=== PATIENT | male | born 1975 | race Caucasian/White ===

== ENCOUNTER 2016-08-29 02:53 | Inpatient (IN) ==
[2016-08-29] MEDS ORDERED: Ondansetron 4 MG/2 ML VIAL IVP PRN (04:57)
[2016-08-29] MEDS ORDERED: Naloxone 0.4 MG/ML INJ IVP PRN (04:57)
[2016-08-29] MEDS ORDERED: D5% in 0.9% NACL 1,000 ML IVC SCH (05:00)
--- NOTE | 2016-08-29 05:12 | Internal Med History&Physical ---
Date of Encounter: 08/29/16 Time of Encounter: 05:02 Assessment and Plan (1) Failure to thrive in adult Current visit: Yes Status: Acute Secondary to active malignancy Recurrent hypoglycemic episodes secondary to significantly decreased PO intake continue D5W NS at 100cc/hr regular diet nutrition consultation requested accucheck q1h palliative care consultation requested to establish goals of care (2) Hypoglycemia Current visit: No Status: Acute secondary to decreased PO intake D5W NS @ 100cc/hr accucheck q1h will closely monitor (3) Thrombocytopenia Current visit: No Status: Chronic likely secondary to underlying malignancy no acute bleeding reported at this time will closely monitor and transfuse as needed (4) Metastatic melanoma Current visit: No Status: Chronic (5) Goals of care, counseling/discussion Current visit: Yes Status: Acute Palliative care consultation requested (6) Hyponatremia Current visit: Yes Status: Chronic Chronic hyponatremia likely secondary to malignancy continue IV fluids and closely monitor (7) DVT prophylaxis Current visit: Yes Status: Acute SCD Internal Medicine - H&P: HPI Chief complaint: transfer from [facility] for persistent hypoglycemia Admitted From: Intrahospital Transfer Plans for Post Hospital Care: Home History of present illness: Mr. 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 Patient is currently AAO x 0 and somnolent. He is only responding to tactile stimuli due to which information is obtained from sister ( Serenity Malcolm [phone]) and medical records. As per sister, patient has been living with her for the last week and has had no PO intake. He has been refusing to eat and been extremely week. She states he was noted to be confused yesterday and she had called EMS at that time however patient was noted to have vitals within normal range and he was alert and oriented due to which EMS did not take him to the hospital for further evaluation. Overnight, patient's mental status became confused again and he became unresponsive, due to which the sister called EMS again and patient was found to be severely hypoglycemic. Sister reports that the patient has been having recurrent episodes of severe hypoglycemia and he is not eating, not taking his medications, and unable to take care of himself. At this time patient is resting in bed and appears to be in no distress. Patient does not have a living will, and as per sister (POA), patient wishes to be full code as he wants to be there for his daughter. Past Med Surg Social Fam HX - Past Medical History Medical history: cancer - Past Surgical History Surgical History: non-contributory - Social History Smoking Status: Unknown if ever smoked Smokeless Tobacco Status: No Alcohol use: unknown Drug use: marijuana Internal Medicine - H&P: Meds Dexamethasone [Decadron] 4 mg PO BID 08/29/16 [History] Furosemide [Lasix] 20 mg PO DAILY 08/29/16 [History] LevETIRAcetam [Roweepra] 500 mg PO BID 08/29/16 [History] Oxycodone HCl [Roxicodone 30 MG Immed Release] 30 mg PO Q6HR 08/29/16 [History] Allergies Penicillins Allergy (Verified 08/05/16 08:19) Difficulty Breathing ROS unobtainable: due to mental status All Systems PM: A 10-system review of systems was performed and is negative for pertinent findings except as documented above in the HPI. - Constitutional General appearance: Present: cachectic, A&O X 0, no acute distress, loss of weight. Absent: answers questions appropriately - Head Head exam: Present: atraumatic, normocephalic - Eye Eye exam: Present: PERRL, conjuntiva pink, sclera anicteric - Respiratory Respiratory exam: Present: CTAB. Absent: accessory muscle use, rales, rhonchi, wheezes - Cardiovascular Cardiovascular exam: Present: +S1, +S2, tachycardia. Absent: diastolic murmur, systolic murmur - GI/Abdominal GI/Abdominal exam: Present: normal bowel sounds, soft, no peritoneal signs. Absent: distended, tenderness - Extremities Exam Extremities exam: Present: pedal edema, warm, radial pulses palpable and symetrical. Absent: calf tenderness
[2016-08-29] MEDS: *HR* Dextrose 50 % in Water (Syg) 50 ML SYRINGE IVP PRN ×7 (07:58→22:36)
[2016-08-29] MEDS ORDERED: *HR* Dextrose 50 % in Water (Syg) 50 ML SYRINGE IVP ONE (09:33)
--- NOTE | 2016-08-29 12:09 | Palliative - Consult Note ---
Date of Encounter: 08/29/16 Time of Encounter: 12:00 - Assessment and Plan (1) Cancer associated pain Current Visit: Yes Status: Acute Assessment and plan: Will need to observe closely. Sister states she thinks he threw his Oxycontin ( 60mg every12 hr) away and wasnt taking it. He does complain of some right hip pain at this time, but he is still very drowsy with altered mental status. Will try and access [facility] report. Will have low dose Hydromorphone available if needed. (2) Goals of care, counseling/discussion Current Visit: Yes Status: Acute Assessment and plan: Patient unable to discuss. Spoke with sister Serenity via telephone. States that pt and family was living with her, but they just moved into their own place. States he has significant other Daisy August of 13 yrs and has 11y/o daughter. States that both his parents have , and he has 2 other brothers that he does not have a very good relationship with. States that he has not completed a power of disability attorney or any other advanced directives as of this time, and although he refused to do so at [facility], had recently told his girlfriend he needed to complete. She states he expressed desire to be full code last night. She will call me tomorrow when gets to hospital for goals of care discussion. Hopefully, his mental status will be improved. Will f/u Tuesday. (3) Metastatic melanoma Current Visit: No Status: Chronic (4) Hypoglycemia Current Visit: No Status: Acute Palliative-CN HPI - Data of Consult Consult date: 08/29/16 Requesting Physician: Ciarra Garzon Primary Care Provider: PCP NO - Consult Narrative History of present illness: Mr. Snadoval is a 41 year old male with a history of metastatic melanoma, with liver , brain, and bone involvement. He was seen yesterday in ER for hypoglycemia, and refused admission. Family returned him to [place] last night with lethargy. Information provided by chart review and sisterSerenity via telephone. Patient recently relocated to the area and was living with sister, but now he and his girlfriend have moved into their own place. Original diagnosis was in fall 2015 , and had excision of tumor and lympph nodes - developed wound dehiscence, requiring wound vac. Any cancer treatment was put on hold r/t wound complications. His care has been tranferred to the [facility]. He had recent Cyberknife to brain lesion at [facility]. Oncology notes reviewed. Family stated that he has not eaten in several days. Found again to be hypoglycemic and transferred to [facility] for further treatment. Nurse is at bedside and states pt has received several doses of Glucose - blood sugar currently in 40's. Currently, He is restless and confused. Did however recognize he was at hospital, thought he was at [place]. No family present. CC: Ciarra Garzon Past Med Surg Social Fam HX - Past Medical History Medical history: cancer - Past Surgical History Surgical History: non-contributory - Social History Smoking Status: Unknown if ever smoked Smokeless Tobacco Status: No Alcohol use: unknown Drug use: marijuana Medications and Allergies Dexamethasone [Decadron] 4 mg PO BID 08/29/16 [History] Furosemide [Lasix] 20 mg PO DAILY 08/29/16 [History] LevETIRAcetam [Roweepra] 500 mg PO BID 08/29/16 [History] Oxycodone HCl [Roxicodone 30 MG Immed Release] 30 mg PO Q6HR 08/29/16 [History] Allergies Penicillins Allergy (Verified 08/05/16 08:19) Difficulty Breathing ROS unobtainable: due to mental status Palliative Care-Exam - Constitutional Vitals: Temp Pulse Resp BP Pulse Ox 98.5 F 135 24 116/63 95 08/29/16 07:36 08/29/16 11:06 08/29/16 11:06 08/29/16 11:06 08/29/16 11:06 General appearance: Present: no acute distress - Head Head Exam: Present: normal inspection, normocephalic - Eye Eye exam: Present: normal appearance, PERRL - ENT ENT exam: Present: mucous membranes dry - Respiratory Respiratory exam: Present: decreased breath sounds, CTAB - Cardiovascular Cardiovascular exam: Present: +S1, +S2, tachycardia - GI/Abdominal Exam GI/Abdominal exam: Present: diminished bowel sounds, distended, soft - Extremities Exam Extremities exam: Present: normal capillary refill, normal inspection - Neurological Exam Neurological exam: Present: alert Additional comments: Lethargic - restless. Oriented to name only at present. - Skin Skin exam: Present: dry, pallor, warm Consult Discharge Plan - Plan Referrals: NO,PCP [Primary Care Provider] - Palliative Quality Palliative Quality: Screen for Code Status: No (pt confused), Screen for Goals of Care: No, Screen for Pain: Yes, If Pain Regimen Started, Initiate Bowel Regimen: No, Screen for Nausea/Vomitting: No Code Status: 08/29/16 04:57 Resuscitation Status: Active [RES] Routine Comment: Resuscitation Status: Full Code
--- NOTE | 2016-08-29 13:00 | Event Note ---
Date of Encounter: 08/29/16 Time of Encounter: 12:50 patient admitted for severe hpoglycemia, hyponatremia and thrombocytopenia in the setting of metastatic melanoma stage 4. patient seen at the bedside, awake but drowsy,, confused and does not answer much to questions no obvious bleeding from any body sites, noted that he has persistent hypoglycemia despite of being on D5 NS drip will change the drip to D10NS for now, check fsg q1hr, D50 IV push prn and glucagon 1 mg IV prn also discussed with Dr. Dietrich about the patient,will need platelet transfusion if it drops below 20. there is a concern for possible hepatic mets given elevated alk phos and persistent hyppoglycemia will follow oncology recommendation, palliative on board. will monitro chem 7 q4h as he also has hyponatremia, repeat cbc in the evening. patinet is high risk given severe metabolic abnormalities with thrombocytopenia in the setting of metastatic melanoma.
[2016-08-29] MEDS: WATER IVC SCH (13:23)
[2016-08-29] MEDS: DEXTROSE IVC SCH (13:23)
[2016-08-29] MEDS: NACL IVC SCH (13:23)
[2016-08-29] MEDS: D5 IVC SCH (13:23)
--- NOTE | 2016-08-29 16:20 | Oncology Inp Consult Note ---
Date of Encounter: 08/29/16 Time of Encounter: 16:20 - Data of Consult Patient: known to practice within the last 3 years Consult date: 08/29/16 Requesting Physician: Ciarra Garzon Primary Care Provider: PCP NO - Consult Narrative Reason for consult: Metastatic melanoma History of present illness: Mr. Sandoval is a 41 year old male patient of the cancer center was established with Dr. Mejia for ongoing management of widely metastatic melanoma. He is also seen Dr. Adrian in the past regarding symptomatic metastasis to bone and brain. He was last seen in the office 08/11/16. I have summarized patient's heme/onc background below based on [default value]'s most recent office report. 41-year-old male with smoking hx, bipolar disorder, was evaluated in January 2016 with fungating the lesion of melanoma which was suspected to have deeper extension in the left pubic area with inguinal adenopathy. Imaging at that time showed a 3.7 cm cutaneous mass in the left suprapubic region as well as bilateral groin metastatic lymphadenopathy. Left groin lymph node measured 2.9 x 2.3 cm right groin lymph nodes measured 2.8 x 1.8 cm in size 3.7 x 2.3 cm cutaneous mass in the left suprapubic region. She was also noted to have 5 mm intermediate solid nodule in the right middle lobe, multifocal Airspace opacities in the right lower lobe and an enlarged right hilar lymph node which was thought to be reactive. He underwent biopsy,CT scan showing no evidence clearly suggestive of metastatic disease, excision and evaluation for adjuvant treatment. He was staged T4b N2b to be malignant melanoma, IIIc disease. He had a dehiscence macarena groin area with wound VAC. Last f/u per records in 05/14 he was recommended reimaging studies. He was evaluated for trials but basically was left in the dark and does not have a clear understanding why he was not imaged/treated adjuvantly. Patient was further worked up with the PET imaging and MRI scan MRI brain from 07/31/2016 showed 3 enhancing masses consistent with intracranial metastatic disease largest in the left posterior frontal lobe measuring 1.2 cm in diameter with vasogenic edema. Plan 2016 PET imaging showed extensive multifocal hypermetabolic metastatic disease in the brain, intramedullary hypermetabolic activity, E, nonspecific lucent foci in the skeleton, bilateral subcentimeter pulmonary nodules, mild gastritis pericardial effusion diffuse abdominal wall edema to lower extremity. He had CyberKnife therapy to 3 brain lesions (left frontal lobe, left medial parietal lobe and right parietal lobe on 08/13/16 and appears to have tolerated treatment well. For his widely metastatic melanoma, he started combination immunotherapy with Ipilimumab + Nivolumab on 08/17/16. Patient is currently hospitalized for significant clinical decline over the last week or so. He has worsening anemia. Profound thrombocytopenia (platelet count 21,000 versus 360,000 a month ago). He has diffuse, generalized pain, mental status changes with marked lethargic, recurrent hypoglycemic episodes. Overall, he is not thriving well at home. He presented yesterday to the emergency room + out AGAINST MEDICAL ADVICE. He represented today due to worsening in his overall condition. He is being managed supportively by the hospital team including glucose infusion for hyperglycemia, volume resuscitation etc. He is also hyponatremic Oncology is consulted re: patient's underlying metastatic melanoma. Patient seen and examined at bedside with sister and girlfriend present. Chest reviewed for details of ongoing care by hospital team which is much appreciated. Dr. Garzon was kind enough to discuss patient's case with me regarding reason for consultation. He is markedly lethargic at time of evaluation. He reports generalized dysphoria. He has ongoing supportive measures including pain medication and IV glucose. Hypoglycemia. His been evaluated by palliative care regarding symptom management and to address goals of care. I reviewed the consultation report and appreciate the input. Rest of past medical, surgical, family, social history detailed below and verified with patient today. Review of systems: 12 point review of systems performed with patient and positive findings noted in history of present illness. All other systems are negative: Physical exam: Vital Signs Temp 98.5 F 08/29/16 16:10 Pulse 129 08/29/16 16:10 Resp 22 08/29/16 16:10 BP 127/89 08/29/16 16:10 Pulse Ox 96 08/29/16 16:10 GENERAL: Alert and oriented, frail, lethargic, cachectic, acutely ill appearing. Mental Status: Affect appropriate for circumstances HEENT: Sclerae anicteric. No mucositis or thrush. No other oral or pharyngeal lesions or erythema. Skin: No rashes or petechiae. No evidence of skin malignancy Lymph nodes: No cervical, supraclavicular, axillary, or inguinal adenopathy. Lungs: Clear to auscultation bilaterally. Clear to percussion bilaterally. Cardiovascular: Regular rate and rhythm. No gallops, murmurs, or rubs. Abdomen: Soft, nontender; No organomegaly or masses palpable. Extremities: No edema. No calf swelling or tenderness. No joint deformity. Neurologic: Lethargic. Oriented 3. Wants to go home. no focal weakness or sensory abnormalities. Results: Laboratory Last Values Sodium 125 mEq/L (136-145) L 08/29/16 16:02 Potassium 5.9 mEq/L (3.5-4.5) H D 08/29/16 16:02 Chloride 91 mEq/L (98-109) L 08/29/16 16:02 Carbon Dioxide 15 mEq/L (19-29) L 08/29/16 16:02 BUN 35 mg/dL (8-26) H 08/29/16 16:02 Creatinine 0.67 mg/dL (0.72-1.25) L 08/29/16 16:02 Est GFR ( Amer) > 60 (> 60) 08/29/16 16:02 Est GFR (Non-Af Amer) > 60 (> 60) 08/29/16 16:02 BUN/Creatinine Ratio 52 (6-26) H 08/29/16 16:02 Glucose 50 mg/dL (70-99) L 08/29/16 16:02 Calculated Osmolality 265 (280-300) L 08/29/16 16:02 Calcium 8.8 mg/dL (8.6-10.8) 08/29/16 16:02 Radiographic studies: I personally reviewed and interpreted patient's most recent imaging studies dated 08/29/16. I discussed the findings with the patient today. Head CT 08/29/16 showed 1.1 cm rounded mass with surrounding edema in the high left frontal lobe suspicious for metastatic disease. No acute intracranial hemorrhage seen. Brain MRI recommended. From reviewing his records, this is likely secondary that was treated with CyberKnife on 08/13/16. This would be the expected radiographic appearance of his treated brain metastasis. Impression/recommendations: Metastatic melanoma: He has widely disseminated disease involving brain, bone, liver multiple abdominal visceral organs. He recently started combination immunotherapy (Nivolumab plus Ipilimumab) 2 weeks ago. It is certainly too early to see an effect of his immunotherapy which may be slow to begin but typically durable if he responds. From reviewing his records, Dr. Mejia is still in discussion with [facility] regarding the left testing. If he has a BRAF positive melanoma, he'll be an appropriate candidate for a BRAF targeted therapy which is typically associated with rapid and excellent response including intracranially. Given his young age, this will certainly be worth of visiting with him over the course of the coming days. Regarding his current generalized multisystem symptoms and failure to thrive at home, timing of onset is certainly compatible with immunotherapy side effects which can present with multiorgan endocrinopathies and a typically amenable to steroid therapy. Based on above, I will evaluate for adrenal, thyroid dysfunction. Refractory hypoglycemia and general malaise may indicate adrenal insufficiency even though blood pressure is normal. Abdominal pain may indicate autoimmune pancreatitis and we'll checked pancreatic enzymes. Cytopenias may be on an autoimmune basis. He needs complete anemia workup. Elevated LDH is likely related to patient's underlying melanoma. I'm not sure if his mental status changes is related to vasogenic edema from his left frontal brain lesion. I do not believe this is a new metastasis since this area was recently treated with CyberKnife in [place]. I think is reasonable to empirically start him on on dexamethasone 4 mg by mouth or IV depending on oral tolerability 3 times a day. This should address concern about vasogenic edema and would also help with any immunotherapy side effects while workup is ongoing. Regarding his anemia and profound thrombocytopenia: He is not having any active bleeding and we will recommend CBC monitoring. Transfuse platelets to maintain counts greater than 20,000. Recommend complete anemia workup including iron panel, ferritin, B12, folate, direct Sia, haptoglobin, SPEP. For his cancer associated pain: Given concern about altered mental status, he may be an appropriate candidate for demand only [employer]. Appreciate input from palliative care and will defer to them regarding management of patient's pain. We'll follow the patient along side you during this hospitalization but please do not hesitate to call regarding interval hematologic questions as they arise. Thank you for your excellent ongoing care for allowing us to see him while in- house. This report was created using voice recognition software and may contain errors. It was signed but not edited to expedite communication. Corrections will be made in a separate addendum as needed. Past Med Surg Social Fam HX - Past Medical History Medical history: cancer - Past Surgical History Surgical History: non-contributory - Social History Smoking Status: Unknown if ever smoked Smokeless Tobacco Status: No Alcohol use: unknown Drug use: marijuana Medications and Allergies Dexamethasone [Decadron] 4 mg PO BID 08/29/16 [History] Furosemide [Lasix] 20 mg PO DAILY 08/29/16 [History] LevETIRAcetam [Roweepra] 500 mg PO BID 08/29/16 [History] Oxycodone HCl [Roxicodone 30 MG Immed Release] 30 mg PO Q6HR 08/29/16 [History] Allergies Penicillins Allergy (Verified 08/05/16 08:19) Difficulty Breathing Oncology - Exam - Constitutional Vitals: Temp Pulse Resp BP Pulse Ox 98.5 F 129 22 127/89 96 08/29/16 16:10 08/29/16 16:10 08/29/16 16:10 08/29/16 16:10 08/29/16 16:10 Consult Discharge Plan - Plan Referrals: NO,PCP [Primary Care Provider] -
[2016-08-29 16:25] LABS: BUN/Creatinine Ratio 52 (6-26); Blood Urea Nitrogen 35 mg/dL (8-26); Calcium 8.8 mg/dL (8.6-10.8); Carbon Dioxide 15 mEq/L (19-29); Chloride 91 mEq/L (98-109); Glucose 50 mg/dL (70-99); Osmolality,Calculated 265 (280-300); Sodium 125 mEq/L (136-145); eGFR For African Americans > 60 (> 60); eGFR For Non-African Americans > 60 (> 60)
[2016-08-29 16:27] LABS: Potassium 5.9 mEq/L (3.5-4.5)
[2016-08-29] MEDS ORDERED: *HR* OxyCODONE Immed Rel 15 MG TABLET PO PRN (17:21)
[2016-08-29] MEDS: *HR* OxyCODONE ER (12 HR) 20 MG TABLET PO SCH (17:32)
[2016-08-29] MEDS: Dexamethasone 4 MG/ML VIAL IVP SCH ×2 (17:54→19:47)
[2016-08-29 20:25] LABS: Nucleated Red Blood Cells 0.6 /100 WBC (0)
[2016-08-29 20:27] LABS: Hematocrit 24.5 % (37.5-50.1); Hemoglobin 7.8 g/dL (12.9-16.9); Immature Platelets 14.9 % (1.1-6.1); Lymphocytes # 0.7 K/mcL (0.6-4.6); Mean Corpuscular HGB Conc 31.8 g/dL (31.6-35.5); Mean Corpuscular Hemoglobin 23.5 pg (28.0-33.3); Mean Corpuscular Volume 73.8 fL (83.0-100.0); Red Blood Count 3.32 M/mcL (4.19-5.50); Red Cell Distribution Width 19.9 % (11.5-14.5)
[2016-08-29 20:38] LABS: Amylase 23 Units/L (25-125); BUN/Creatinine Ratio 56 (6-26); Blood Urea Nitrogen 31 mg/dL (8-26); Carbon Dioxide 17 mEq/L (19-29); Chloride 91 mEq/L (98-109); Glucose 84 mg/dL (70-99); Lipase < 10 Units/L (8-78); Osmolality,Calculated 268 (280-300); Potassium 4.4 mEq/L (3.5-4.5); Sodium 126 mEq/L (136-145); eGFR For African Americans > 60 (> 60); eGFR For Non-African Americans > 60 (> 60)
[2016-08-29 20:45] LABS: Platelet Count 20 K/mcL (140-400)
[2016-08-29 20:48] LABS: Large Platelets Present (Not Present); Monocytes # 0.9 K/mcL (0.0-1.3); Neutrophils # 9.8 K/mcL (1.6-8.9); Platelet Estimate Marked Decrease (Normal)
[2016-08-29 20:49] LABS: Anisocytosis 1+ (Not Present); Polychromasia 1+ (Not Present); Schistocytes 1+ (Not Present); Target Cells 1+ (Not Present)
[2016-08-30] MEDS: NACL IVC SCH ×3 (00:43→23:19)
[2016-08-30] MEDS: WATER IVC SCH ×3 (00:43→23:19)
[2016-08-30] MEDS: DEXTROSE IVC SCH ×3 (00:43→23:19)
[2016-08-30] MEDS: D5 IVC SCH ×3 (00:43→23:19)
[2016-08-30 00:56] LABS: BUN/Creatinine Ratio 56 (6-26); Blood Urea Nitrogen 31 mg/dL (8-26); Calcium 8.9 mg/dL (8.6-10.8); Carbon Dioxide 14 mEq/L (19-29); Chloride 92 mEq/L (98-109); Glucose 58 mg/dL (70-99); Osmolality,Calculated 264 (280-300); Potassium 5.2 mEq/L (3.5-4.5); Sodium 125 mEq/L (136-145); eGFR For African Americans > 60 (> 60); eGFR For Non-African Americans > 60 (> 60)
[2016-08-30] MEDS: *HR* Dextrose 50 % in Water (Syg) 50 ML SYRINGE IVP PRN ×5 (02:02→22:46)
[2016-08-30 05:14] LABS: BUN/Creatinine Ratio 61 (6-26); Blood Urea Nitrogen 33 mg/dL (8-26); Carbon Dioxide 17 mEq/L (19-29); Chloride 92 mEq/L (98-109); Glucose 61 mg/dL (70-99); Osmolality,Calculated 267 (280-300); Sodium 126 mEq/L (136-145); eGFR For African Americans > 60 (> 60); eGFR For Non-African Americans > 60 (> 60)
[2016-08-30] MEDS: *HR* OxyCODONE ER (12 HR) 20 MG TABLET PO SCH (06:14)
[2016-08-30 08:04] LABS: Hemoglobin 8.3 g/dL (12.9-16.9); Nucleated Red Blood Cells 0.5 /100 WBC (0)
[2016-08-30 08:06] LABS: Hematocrit 25.7 % (37.5-50.1); Immature Platelets 17.6 % (1.1-6.1); Mean Corpuscular HGB Conc 32.3 g/dL (31.6-35.5); Mean Corpuscular Hemoglobin 23.4 pg (28.0-33.3); Mean Corpuscular Volume 72.6 fL (83.0-100.0); Red Blood Count 3.54 M/mcL (4.19-5.50); Red Cell Distribution Width 20.1 % (11.5-14.5)
[2016-08-30 08:10] LABS: Platelet Count 18 K/mcL (140-400)
[2016-08-30 08:34] LABS: Lymphocytes # 0.8 K/mcL (0.6-4.6); Monocytes # 0.5 K/mcL (0.0-1.3); Neutrophils # 11.4 K/mcL (1.6-8.9)
[2016-08-30 08:38] LABS: Anisocytosis 1+ (Not Present); Platelet Estimate Marked Decrease (Normal); Poikilocytosis 2+ (Not Present); Polychromasia 1+ (Not Present); Schistocytes 1+ (Not Present); Target Cells 1+ (Not Present); Tear Drop Cells 1+ (Not Present)
[2016-08-30] MEDS: Dexamethasone 4 MG/ML VIAL IVP SCH ×3 (08:43→21:04)
[2016-08-30 08:52] LABS: BUN/Creatinine Ratio 60 (6-26); Blood Urea Nitrogen 33 mg/dL (8-26); Calcium 9.1 mg/dL (8.6-10.8); Carbon Dioxide 17 mEq/L (19-29); Chloride 93 mEq/L (98-109); Glucose 63 mg/dL (70-99); Osmolality,Calculated 267 (280-300); Potassium 4.9 mEq/L (3.5-4.5); Sodium 126 mEq/L (136-145); eGFR For African Americans > 60 (> 60); eGFR For Non-African Americans > 60 (> 60)
[2016-08-30] MEDS ORDERED: *HR* OxyCODONE Immed Rel 15 MG TABLET PO PRN (09:26)
--- NOTE | 2016-08-30 09:29 | Palliative Progress Note ---
Date of Encounter: 08/30/16 Time of Encounter: 09:00 - Assessment and plan (1) Hypoglycemia Current Visit: No Status: Acute Assessment and plan: Clinton to be secondary to immune therapy, patient is on a dextrose drip. May very well be contributing his somnolence. Although I cannot rule out that this is also opioid related. Need to watch her closely plan per hospitalist and oncology teams. Of note the cortisol is slightly elevated, TSH normal T4 is slightly low with a T3 is not evaluated at this time. Internal medicine is following as well as oncology. (2) Failure to thrive in adult Current Visit: Yes Status: Acute Assessment and plan: Nutrition is already following, will encourage by mouth intake. And supplements. The patient is a bit more awake I will discuss with him the need for Kylie and if he wishes for his immunotherapy to work. (3) Goals of care, counseling/discussion Current Visit: Yes Status: Acute Assessment and plan: The patient does not have a medical power of senior trial attorney, he has not done his advanced directives. Brittany which currently is his sister and his girlfriend of 13 years should be in this afternoon around 1300. I plan to speak with them. It appears the patient wishes to have aggressive therapy. He wishes to achieve this, he will need to work on his nutrition, also have a code discussion as feel that his prognosis would be Auch pot him if he were to have a cardiac arrest with the amount of disease burden that he has. I think the likelihood of any meaningful recovery would be extremely poor. He patient is far too somnolent at this time to have a proper discussion, I will have to defer to his family. (4) Cancer associated pain Current Visit: Yes Status: Acute Assessment and plan: The patient has been on extended release OxyContin 60 mg twice a day and 30 mg every 6 hours as confirmed by his oars report which appears to be appropriate. At this time the patient is extremely somnolent I do not know how much of this may be related to his blood sugars, however his blood sugars are over 70, and he is on a dextrose drip. Do not feel that a WORK ADJUSTMENT INSTRUCTOR is necessary at this point I believe it can be handled with oral medications. Will reevaluate if the patient seems to be having trouble with pain. the patient has been on long- lasting opioids for a while I am reluctant to completely stop them, however I will cut them in half. We will also make the break through medications lower dose but more frequent. Can calculate his oral morphine equivalents per day and adjust from there. Asked for the long-lasting morphine to only be given if he is not sedated, the when necessary's are every 3 hours and we will adjust from there. I Have not changed the Dilaudid IV I have discussed this with the hospitalist who agrees. (5) Metastatic melanoma Current Visit: No Status: Chronic Assessment and plan: On immune therapy from the cancer center. It appears the patient wishes to be centered for an continue on aggressive therapy. We will plan on this. And will discuss with family later on today. - Time Spent With Patient Total time spent is greater than 50% in coordination of care (as documented) at patient's floor/unit and/or counseling patient: - Subjective Interval history: pt very sedated this am cannot carry on a conversTION The patient drifts off to sleep even when I am asking him about his pain. He does not appear to be in any discomfort, no events overnight. - Constitutional Vitals: Abnormal lab results WBC 13.0 K/mcL (4.3-11.1) H 08/30/16 07:46 RBC 3.54 M/mcL (4.19-5.50) L 08/30/16 07:46 Hgb 8.3 g/dL (12.9-16.9) L 08/30/16 07:46 Hct 25.7 % (37.5-50.1) L 08/30/16 07:46 MCV 72.6 fL (83.0-100.0) L 08/30/16 07:46 MCH 23.4 pg (28.0-33.3) L 08/30/16 07:46 RDW 20.1 % (11.5-14.5) H 08/30/16 07:46 Plt Count 18 K/mcL (140-400) L* 08/30/16 07:46 Band Neutrophils % 20.0 % (0-4) H 08/30/16 07:46 Promyelocytes % 2.0 % (0) H 08/30/16 07:46 Neutrophils # 11.4 K/mcL (1.6-8.9) H 08/30/16 07:46 Nucleated RBCs/100 WBC 0.5 /100 WBC (0) H 08/30/16 07:46 Platelet Estimate Marked Decrease (Normal) L 08/30/16 07:46 Large Platelets Present (Not Present) A 08/29/16 20:17 Immature Plt Fraction 17.6 % (1.1-6.1) H 08/30/16 07:46 Polychromasia 1+ (Not Present) A 08/30/16 07:46 Poikilocytosis 2+ (Not Present) A 08/30/16 07:46 Anisocytosis 1+ (Not Present) A 08/30/16 07:46 Target Cells 1+ (Not Present) A 08/30/16 07:46 Tear Drop Cells 1+ (Not Present) A 08/30/16 07:46 Schistocytes 1+ (Not Present) A 08/30/16 07:46 Sodium 126 mEq/L (136-145) L 08/30/16 07:46 Potassium 4.9 mEq/L (3.5-4.5) H 08/30/16 07:46 Chloride 93 mEq/L (98-109) L 08/30/16 07:46 Carbon Dioxide 17 mEq/L (19-29) L 08/30/16 07:46 BUN 33 mg/dL (8-26) H 08/30/16 07:46 Creatinine 0.55 mg/dL (0.72-1.25) L 08/30/16 07:46 BUN/Creatinine Ratio 60 (6-26) H 08/30/16 07:46 Glucose 63 mg/dL (70-99) L 08/30/16 07:46 POC Glucose 50 (58-89) L 08/29/16 17:41 Calculated Osmolality 267 (280-300) L 08/30/16 07:46 Amylase 23 Units/L (25-125) L 08/29/16 20:17 Thyroxine (T4) 2.44 mcg/dL (4.87-11.72) L 08/29/16 20:17 General appearance: Present: no acute distress, thin - Head Head exam: Present: atraumatic, normal inspection - Eye Eye exam: Present: normal appearance - ENT ENT exam: Present: mucous membranes moist (White patches are noticed on the mouth and tongue) - Neck Neck exam: Present: normal inspection - Respiratory Respiratory exam: Present: CTAB - Cardiovascular Cardiovascular exam: Present: RRR - GI/Abdominal GI/Abdominal exam: Present: normal bowel sounds, soft. Absent: tenderness - Extremities Exam Extremities exam: Present: normal inspection. Absent: pedal edema, tenderness - Neurological Exam Neurological exam: Present: altered (Patient extremely somnolent and difficult to engage in conversation) - Psychiatric Psychiatric exam: Absent: agitated, anxious - Skin Skin exam: Present: dry, warm Palliative Quality Palliative Quality: Screen for Code Status: No (pt confused will discuss with family later today), Screen for Goals of Care: No (Stress with family later today), Screen for Pain: Yes, If Pain Regimen Started, Initiate Bowel Regimen: Yes (Restart regimen today), Screen for Nausea/Vomitting: Yes (None reported) Code Status: 08/29/16 04:57 Resuscitation Status: Active [RES] Routine Comment: Resuscitation Status: Full Code - Labs CBC & Chem 7: 08/30/16 07:46 08/30/16 07:46 Labs: Laboratory Results - last 24 hr 08/29/16 08/29/16 08/29/16 04:17 06:24 06:26 WBC RBC Hgb Hct MCV MCH MCHC RDW Plt Count MPV Seg Neutrophils % Band Neutrophils % Lymphocytes % Monocytes % Promyelocytes % Neutrophils # Lymphocytes # Monocytes # Nucleated RBCs/100 WBC Platelet Estimate Large Platelets Immature Plt Fraction Polychromasia Poikilocytosis Anisocytosis Target Cells Tear Drop Cells Schistocytes Sodium Potassium Chloride Carbon Dioxide BUN Creatinine Est GFR ( Amer) Est GFR (Non-Af Amer) BUN/Creatinine Ratio Glucose POC Glucose 59 47 L* 65 Calculated Osmolality Calcium Amylase Lipase TSH Thyroxine (T4) Random Cortisol 08/29/16 08/29/16 08/29/16 07:34 07:35 09:26 WBC RBC Hgb Hct MCV MCH MCHC RDW Plt Count MPV Seg Neutrophils % Band Neutrophils % Lymphocytes % Monocytes % Promyelocytes % Neutrophils # Lymphocytes # Monocytes # Nucleated RBCs/100 WBC Platelet Estimate Large Platelets Immature Plt Fraction Polychromasia Poikilocytosis Anisocytosis Target Cells Tear Drop Cells Schistocytes Sodium Potassium Chloride Carbon Dioxide BUN Creatinine Est GFR ( Amer) Est GFR (Non-Af Amer) BUN/Creatinine Ratio Glucose POC Glucose 28 L* 42 L* 31 L* Calculated Osmolality Calcium Amylase Lipase TSH Thyroxine (T4) Random Cortisol 08/29/16 08/29/16 08/29/16 09:27 10:00 10:54 WBC RBC Hgb Hct MCV MCH MCHC RDW Plt Count MPV Seg Neutrophils % Band Neutrophils % Lymphocytes % Monocytes % Promyelocytes % Neutrophils # Lymphocytes # Monocytes # Nucleated RBCs/100 WBC Platelet Estimate Large Platelets Immature Plt Fraction Polychromasia Poikilocytosis Anisocytosis Target Cells Tear Drop Cells Schistocytes Sodium Potassium Chloride Carbon Dioxide BUN Creatinine Est GFR ( Amer) Est GFR (Non-Af Amer) BUN/Creatinine Ratio Glucose POC Glucose 30 L* 62 45 L* Calculated Osmolality Calcium Amylase Lipase TSH Thyroxine (T4) Random Cortisol 08/29/16 08/29/16 08/29/16 10:55 11:31 12:24 WBC RBC Hgb Hct MCV MCH MCHC RDW Plt Count MPV Seg Neutrophils % Band Neutrophils % Lymphocytes % Monocytes % Promyelocytes % Neutrophils # Lymphocytes # Monocytes # Nucleated RBCs/100 WBC Platelet Estimate Large Platelets Immature Plt Fraction Polychromasia Poikilocytosis Anisocytosis Target Cells Tear Drop Cells Schistocytes Sodium Potassium Chloride Carbon Dioxide BUN Creatinine Est GFR ( Amer) Est GFR (Non-Af Amer) BUN/Creatinine Ratio Glucose POC Glucose 42 L* 105 H 54 L Calculated Osmolality Calcium Amylase Lipase TSH Thyroxine (T4) Random Cortisol 08/29/16 08/29/16 08/29/16 13:11 14:04 15:01 WBC RBC Hgb Hct MCV MCH MCHC RDW Plt Count MPV Seg Neutrophils % Band Neutrophils % Lymphocytes % Monocytes % Promyelocytes % Neutrophils # Lymphocytes # Monocytes # Nucleated RBCs/100 WBC Platelet Estimate Large Platelets Immature Plt Fraction Polychromasia Poikilocytosis Anisocytosis Target Cells Tear Drop Cells Schistocytes Sodium Potassium Chloride Carbon Dioxide BUN Creatinine Est GFR ( Amer) Est GFR (Non-Af Amer) BUN/Creatinine Ratio Glucose POC Glucose 80 52 L 90 H Calculated Osmolality Calcium Amylase Lipase TSH Thyroxine (T4) Random Cortisol 08/29/16 08/29/16 08/29/16 15:53 16:02 16:35 WBC RBC Hgb Hct MCV MCH MCHC RDW Plt Count MPV Seg Neutrophils % Band Neutrophils % Lymphocytes % Monocytes % Promyelocytes % Neutrophils # Lymphocytes # Monocytes # Nucleated RBCs/100 WBC Platelet Estimate Large Platelets Immature Plt Fraction Polychromasia Poikilocytosis Anisocytosis Target Cells Tear Drop Cells Schistocytes Sodium 125 L Potassium 5.9 H D Chloride 91 L Carbon Dioxide 15 L BUN 35 H Creatinine 0.67 L Est GFR ( Amer) > 60 Est GFR (Non-Af Amer) > 60 BUN/Creatinine Ratio 52 H Glucose 50 L POC Glucose 73 87 Calculated Osmolality 265 L Calcium 8.8 Amylase Lipase TSH Thyroxine (T4) Random Cortisol 08/29/16 08/29/16 08/29/16 17:19 17:39 17:41 WBC RBC Hgb Hct MCV MCH MCHC RDW Plt Count MPV Seg Neutrophils % Band Neutrophils % Lymphocytes % Monocytes % Promyelocytes % Neutrophils # Lymphocytes # Monocytes # Nucleated RBCs/100 WBC Platelet Estimate Large Platelets Immature Plt Fraction Polychromasia Poikilocytosis Anisocytosis Target Cells Tear Drop Cells Schistocytes Sodium Potassium 4.8 H D Chloride Carbon Dioxide BUN Creatinine Est GFR ( Amer) Est GFR (Non-Af Amer) BUN/Creatinine Ratio Glucose POC Glucose 47 L* 50 L Calculated Osmolality Calcium Amylase Lipase TSH Thyroxine (T4) Random Cortisol 08/29/16 08/29/16 08/30/16 20:17 20:17 00:14 WBC 11.4 H RBC 3.32 L Hgb 7.8 L Hct 24.5 L MCV 73.8 L MCH 23.5 L MCHC 31.8 RDW 19.9 H Plt Count 20 L* MPV TNP Seg Neutrophils % 72.0 Band Neutrophils % 14.0 H Lymphocytes % 6.0 Monocytes % 8.0 Promyelocytes % Neutrophils # 9.8 H Lymphocytes # 0.7 Monocytes # 0.9 Nucleated RBCs/100 WBC 0.6 H Platelet Estimate Marked Decrease L Large Platelets Present A Immature Plt Fraction 14.9 H Polychromasia 1+ A Poikilocytosis Anisocytosis 1+ A Target Cells 1+ A Tear Drop Cells Schistocytes 1+ A Sodium 126 L 125 L Potassium 4.4 5.2 H Chloride 91 L 92 L Carbon Dioxide 17 L 14 L BUN 31 H 31 H Creatinine 0.55 L 0.55 L Est GFR ( Amer) > 60 > 60 Est GFR (Non-Af Amer) > 60 > 60 BUN/Creatinine Ratio 56 H 56 H Glucose 84 58 L POC Glucose Calculated Osmolality 268 L 264 L Calcium 9.0 8.9 Amylase 23 L Lipase < 10 TSH 3.120 Thyroxine (T4) 2.44 L Random Cortisol 22.2 08/30/16 08/30/16 08/30/16 04:39 07:46 07:46 WBC 13.0 H RBC 3.54 L Hgb 8.3 L Hct 25.7 L MCV 72.6 L MCH 23.4 L MCHC 32.3 RDW 20.1 H Plt Count 18 L* MPV Seg Neutrophils % 68.0 Band Neutrophils % 20.0 H Lymphocytes % 6.0 Monocytes % 4.0 Promyelocytes % 2.0 H Neutrophils # 11.4 H Lymphocytes # 0.8 Monocytes # 0.5 Nucleated RBCs/100 WBC 0.5 H Platelet Estimate Marked Decrease L Large Platelets Immature Plt Fraction 17.6 H Polychromasia 1+ A Poikilocytosis 2+ A Anisocytosis 1+ A Target Cells 1+ A Tear Drop Cells 1+ A Schistocytes 1+ A Sodium 126 L 126 L Potassium 5.0 H 4.9 H Chloride 92 L 93 L Carbon Dioxide 17 L 17 L BUN 33 H 33 H Creatinine 0.54 L 0.55 L Est GFR ( Amer) > 60 > 60 Est GFR (Non-Af Amer) > 60 > 60 BUN/Creatinine Ratio 61 H 60 H Glucose 61 L 63 L POC Glucose Calculated Osmolality 267 L 267 L Calcium 9.0 9.1 Amylase Lipase TSH Thyroxine (T4) Random Cortisol Consult Discharge Plan - Plan Referrals: NO,PCP [Primary Care Provider] -
[2016-08-30] MEDS ORDERED: 0.9 % Sodium Chloride 250 ML ONE (10:42)
--- NOTE | 2016-08-30 13:05 | Internal Med Progress Note ---
Date of Encounter: 08/30/16 Time of Encounter: 13:01 - Assessment and plan (1) Hypoglycemia Current Visit: No Status: Acute Assessment and plan: persistent hypoglycemia, multifactorial, decreased oral intake for sometime. also possible 2/2 immunotherapy which he had recently with metabolic side effects as per oncology. tsh and random cortisol levels are normal. continue IV 10%dextrose with NS. onco recommended starting decadron 4 mg iv TID. glucagon prn. rosemarie continue to monitor fsg. D50 IV push prn, enforce oral intake, start TUbe feeds, dietitian to manage. will consult nutrition too. (2) Thrombocytopenia Current Visit: No Status: Chronic Assessment and plan: today 18, no active bleeeidng possible from the recent immunotherapy. will transfuse 1 unit today. chck for bleeding monitor cbc q12h (3) Failure to thrive in adult Current Visit: Yes Status: Acute (4) Goals of care, counseling/discussion Current Visit: Yes Status: Acute Assessment and plan: being followed by palliative. currently full code, family meeting to be held with palliative appreciate palliative input. (5) Hyponatremia Current Visit: Yes Status: Chronic (6) Cancer associated pain Current Visit: Yes Status: Acute (7) Metastatic melanoma Current Visit: No Status: Chronic - Subjective Interval history: inna seen at the bedside, not very cooperative, but did wake up on verbal command. he denies any pain, n/v/d or bleeding from any sites at this time/ he has not had much to eat last night or this morning. - Constitutional Vitals: Temp Pulse Resp BP Pulse Ox 98.1 F 105 12 111/83 95 08/30/16 11:40 08/30/16 11:40 08/30/16 11:40 08/30/16 11:40 08/30/16 11:40 General appearance: Present: cachectic, A&O X 0, A&O X 1, no acute distress, loss of weight. Absent: answers questions appropriately Exam: cachectic and drowsy. neck- supple chest- b/l clear, no added sounds CVS-s1 and s2, no m/r/g abd-soft,non tender, bs are present ext- no edema neuro- no focal deficits, drowsy but wakes up on command. Internal Medicine: Result - Labs CBC & Chem 7: 08/30/16 07:46 08/30/16 07:46 Labs: Short CBC 08/29/16 08/30/16 Range/Units 20:17 07:46 WBC 11.4 H 13.0 H (4.3-11.1) K/mcL Hgb 7.8 L 8.3 L (12.9-16.9) g/dL Hct 24.5 L 25.7 L (37.5-50.1) % Plt Count 20 L* 18 L* (140-400) K/mcL Neutrophils # 9.8 H 11.4 H (1.6-8.9) K/mcL BMP 08/29/16 08/29/16 08/29/16 16:02 17:19 20:17 Sodium 125 L 126 L Potassium 5.9 H D 4.8 H D 4.4 Chloride 91 L 91 L Carbon Dioxide 15 L 17 L BUN 35 H 31 H Creatinine 0.67 L 0.55 L Glucose 50 L 84 Calcium 8.8 9.0 08/30/16 08/30/16 08/30/16 00:14 04:39 07:46 Sodium 125 L 126 L 126 L Potassium 5.2 H 5.0 H 4.9 H Chloride 92 L 92 L 93 L Carbon Dioxide 14 L 17 L 17 L BUN 31 H 33 H 33 H Creatinine 0.55 L 0.54 L 0.55 L Glucose 58 L 61 L 63 L Calcium 8.9 9.0 9.1 - VTE Documentation of Mechanical Device: Graduated compression elastic hosiery Consult Discharge Plan - Plan Referrals: NO,PCP [Primary Care Provider] -
[2016-08-30] MEDS ORDERED: *HR* OxyCODONE Immed Rel 5 MG TABLET PO PRN (13:10)
[2016-08-30] MEDS: Nystatin SUSP 5 ML UD.LIQ PO SCH ×3 (14:11→21:04)
[2016-08-30 15:38] LABS: Hematocrit 23.3 % (37.5-50.1); Hemoglobin 7.5 g/dL (12.9-16.9); Mean Corpuscular HGB Conc 32.2 g/dL (31.6-35.5); Mean Corpuscular Hemoglobin 23.6 pg (28.0-33.3); Mean Corpuscular Volume 73.3 fL (83.0-100.0); Mean Platelet Volume 9.2 fL (9.4-12.4); Nucleated Red Blood Cells 0.4 /100 WBC (0); Red Blood Count 3.18 M/mcL (4.19-5.50)
--- NOTE | 2016-08-30 15:38 | Event Note ---
Date of Encounter: 08/30/16 Time of Encounter: 15:34 Long discussion with family including sister Marisabel, one of 2 brothers girlfriend Shae the patient's daughter by the patient and Shae and the patient's [id number]. Marisabel, his sister and his brother both told me that they have been in contact with his other brother and everyone is in agreement. Marisabel is keeping everybody informed, and she is the family spokesperson. This was also confirmed by his girlfriend. At this time the family believes that he would want to continue being full code, as this is the prior intent that they he has expressed to them even though he has not discussed this with them directly. He has not done advanced directives, however girlfrienpita believes and his sister agrees that he would not want long-term life support. We will address that further later on this week. At this time the patient is clearly not getting enough nutrition, nutrition is recommending feeding tube and the family is fully in favor of this at least temporarily. I have discussed with them the pros and the cons, they understand and I have recommended to the hospitalist that the patient have a feeding tube maximize nutrition to help him to get the most out of his immune therapy that he can as this does fit his previously known intent. As already noted in my earlier note I have cut back his pain medication due to the somnolence. Ask for his long-lasting stuff to be held if he is somnolent we will readdress over the next day or 2 how much pain medication he needs to have available. Her discussion with the hospitalist , feeding tube will be placed today and tube feeds will be begun. I have discussed this also with nutrition. Again, sister Marisabel is speaking with you 40 the family and keeping everybody informed. He went in the room was in agreement with this.
[2016-08-30 15:41] LABS: Platelet Count 43 K/mcL (140-400)
[2016-08-30 15:51] LABS: BUN/Creatinine Ratio 63 (6-26); Blood Urea Nitrogen 35 mg/dL (8-26); Carbon Dioxide 16 mEq/L (19-29); Chloride 93 mEq/L (98-109); Glucose 52 mg/dL (70-99); Osmolality,Calculated 269 (280-300); Potassium 5.5 mEq/L (3.5-4.5); Sodium 127 mEq/L (136-145); eGFR For African Americans > 60 (> 60); eGFR For Non-African Americans > 60 (> 60)
--- NOTE | 2016-08-30 15:52 | Event Note ---
Date of Encounter: 08/30/16 Time of Encounter: 15:52 Since patient will be getting a feeding tube today I strongly recommend maintaining a sitter until it is clear that he is tolerating the tube well and will not pull it out.
[2016-08-30 16:13] LABS: Lymphocytes # 0.3 K/mcL (0.6-4.6); Monocytes # 0.4 K/mcL (0.0-1.3); Neutrophils # 11.7 K/mcL (1.6-8.9)
[2016-08-30 16:15] LABS: Hypochromasia Present (Not Present); Rouleaux Present (Not Present)
[2016-08-30 16:16] LABS: Anisocytosis 2+ (Not Present); Platelet Estimate Marked Decrease (Normal); Polychromasia 1+ (Not Present); Target Cells 1+ (Not Present)
[2016-08-30] MEDS: *HR* OxyCODONE ER (12 HR) 10 MG TABLET PO SCH (17:31)
[2016-08-30 20:25] LABS: BUN/Creatinine Ratio 70 (6-26); Blood Urea Nitrogen 37 mg/dL (8-26); Calcium 8.9 mg/dL (8.6-10.8); Carbon Dioxide 17 mEq/L (19-29); Chloride 95 mEq/L (98-109); Glucose 47 mg/dL (70-99); Osmolality,Calculated 272 (280-300); Sodium 128 mEq/L (136-145); eGFR For African Americans > 60 (> 60); eGFR For Non-African Americans > 60 (> 60)
[2016-08-30 20:27] LABS: Potassium 5.7 mEq/L (3.5-4.5)
[2016-08-30] MEDS: Sennosides/Docusate Sodium TABLET PO SCH (21:04)
[2016-08-31] MEDS: *HR* Dextrose 50 % in Water (Syg) 50 ML SYRINGE IVP PRN ×7 (01:12→22:21)
[2016-08-31] MEDS: *HR* HYDROmorphone 2 MG/ML SYRINGE IVP PRN ×2 (02:54→10:08)
[2016-08-31 05:13] LABS: Basophils % 0.2 %; Eosinophils % 0.1 %; Hematocrit 24.3 % (37.5-50.1); Immature Granulocytes % 6.2 % (0-4); Lymphocytes % 8.1 %; Mean Corpuscular HGB Conc 32.9 g/dL (31.6-35.5); Mean Corpuscular Hemoglobin 23.7 pg (28.0-33.3); Mean Corpuscular Volume 72.1 fL (83.0-100.0); Monocytes # 0.4 K/mcL (0.0-1.3); Monocytes % 3.2 %; Neutrophils # 10.6 K/mcL (1.6-8.9); Nucleated Red Blood Cells 0.4 /100 WBC (0); Red Blood Count 3.37 M/mcL (4.19-5.50); Red Cell Distribution Width 20.6 % (11.5-14.5); Segmented Neutrophils % 82.2 %
[2016-08-31 05:21] LABS: Platelet Count 30 K/mcL (140-400)
[2016-08-31 06:17] LABS: Platelet Estimate Marked Decrease (Normal)
[2016-08-31 06:18] LABS: Anisocytosis 2+ (Not Present)
[2016-08-31 06:19] LABS: Macrocytosis Present (Not Present)
[2016-08-31] MEDS: Levothyroxine 25 MCG TABLET PO SCH (07:23)
[2016-08-31] MEDS: *HR* OxyCODONE ER (12 HR) 10 MG TABLET PO SCH ×2 (07:23→17:35)
[2016-08-31] MEDS: Nystatin SUSP 5 ML UD.LIQ PO SCH ×4 (09:49→20:01)
[2016-08-31] MEDS: Dexamethasone 4 MG/ML VIAL IVP SCH ×3 (09:49→20:01)
[2016-08-31] MEDS: Sennosides/Docusate Sodium TABLET PO SCH ×2 (09:49→20:01)
[2016-08-31] MEDS: WATER IVC SCH ×2 (10:15→22:21)
[2016-08-31] MEDS: D5 IVC SCH ×2 (10:15→22:21)
[2016-08-31] MEDS: NACL IVC SCH ×2 (10:15→22:21)
[2016-08-31] MEDS: DEXTROSE IVC SCH ×2 (10:15→22:21)
--- NOTE | 2016-08-31 11:16 | Oncology Inp Progress Note ---
Date of Encounter: 08/31/16 Time of Encounter: 11:04 Oncology: Subj Interval history: History of present illness: Patient seen and examined at bedside. Chart reviewed for interval details and appreciate ongoing management by hospital team. He remains markedly lethargic, cachectic. He is now on NG tube feeding and doing OK with that. He is still having intermittent hypoglycemia and receiving D50 when necessary with parameters. He is also on a D10 infusion. Palliative care is following and guiding pain management. Appreciate their input. Workup showed hypothyroidism. No previous values and this may be a new development on account of recent immunotherapy. Random cortisol level normal although I'm not sure if this is indicated for stress response. No other new issues. Review of systems: 12 point review of systems as noted above.All other systems are negative: Physical exam: Vital Signs Temp 97.3 F L 08/31/16 07:00 Pulse 115 08/31/16 10:03 Resp 19 08/31/16 10:02 BP 106/87 08/31/16 10:02 Pulse Ox 97 08/31/16 07:00 GENERAL: Alert and oriented, markedly lethargic and cachectic appearing. Mental Status: Affect appropriate for circumstances Skin: Poor skin turgor and signs of severe dehydration. Extremities: No edema. No calf swelling or tenderness. No joint deformity. Neurologic: Global weakness but no focal sensorimotor abnormalities. Results: Laboratory Last Values WBC 12.9 K/mcL (4.3-11.1) H 08/31/16 04:41 RBC 3.37 M/mcL (4.19-5.50) L 08/31/16 04:41 Hgb 8.0 g/dL (12.9-16.9) L 08/31/16 04:41 Hct 24.3 % (37.5-50.1) L 08/31/16 04:41 MCV 72.1 fL (83.0-100.0) L 08/31/16 04:41 MCH 23.7 pg (28.0-33.3) L 08/31/16 04:41 MCHC 32.9 g/dL (31.6-35.5) 08/31/16 04:41 RDW 20.6 % (11.5-14.5) H 08/31/16 04:41 Plt Count 30 K/mcL (140-400) L* 08/31/16 04:41 MPV TNP 08/31/16 04:41 Immature Gran % 6.2 % (0-4) H 08/31/16 04:41 Seg Neutrophils % 82.2 % 08/31/16 04:41 Band Neutrophils % 15.0 % (0-4) H 08/30/16 15:25 Lymphocytes % 8.1 % 08/31/16 04:41 Monocytes % 3.2 % 08/31/16 04:41 Eosinophils % 0.1 % 08/31/16 04:41 Basophils % 0.2 % 08/31/16 04:41 Myelocytes % 1.0 % (0) H 08/30/16 15:25 Promyelocytes % 2.0 % (0) H 08/30/16 07:46 Neutrophils # 10.6 K/mcL (1.6-8.9) H 08/31/16 04:41 Lymphocytes # 1.0 K/mcL (0.6-4.6) 08/31/16 04:41 Monocytes # 0.4 K/mcL (0.0-1.3) 08/31/16 04:41 Eosinophils # 0.0 K/mcL (0.0-0.6) 08/31/16 04:41 Basophils # 0.0 K/mcL (0.0-0.2) 08/31/16 04:41 Nucleated RBCs/100 WBC 0.4 /100 WBC (0) H 08/31/16 04:41 Platelet Estimate Marked Decrease (Normal) L 08/31/16 04:41 Large Platelets Present (Not Present) A 08/29/16 20:17 Immature Plt Fraction 17.6 % (1.1-6.1) H 08/30/16 07:46 Polychromasia 1+ (Not Present) A 08/30/16 15:25 Hypochromasia Present (Not Present) A 08/30/16 15:25 Poikilocytosis 2+ (Not Present) A 08/30/16 07:46 Anisocytosis 2+ (Not Present) A 08/31/16 04:41 Macrocytosis Present (Not Present) A 08/31/16 04:41 Target Cells 1+ (Not Present) A 08/30/16 15:25 Tear Drop Cells 1+ (Not Present) A 08/30/16 07:46 Rouleaux Present (Not Present) A 08/30/16 15:25 Schistocytes 1+ (Not Present) A 08/30/16 07:46 Sodium 128 mEq/L (136-145) L 08/30/16 20:01 Potassium 5.7 mEq/L (3.5-4.5) H 08/30/16 20:01 Chloride 95 mEq/L (98-109) L 08/30/16 20:01 Carbon Dioxide 17 mEq/L (19-29) L 08/30/16 20:01 BUN 37 mg/dL (8-26) H 08/30/16 20:01 Creatinine 0.53 mg/dL (0.72-1.25) L 08/30/16 20:01 Est GFR ( Amer) > 60 (> 60) 08/30/16 20:01 Est GFR (Non-Af Amer) > 60 (> 60) 08/30/16 20:01 BUN/Creatinine Ratio 70 (6-26) H 08/30/16 20:01 Glucose 47 mg/dL (70-99) L 08/30/16 20:01 POC Glucose 112 (58-89) H 08/31/16 01:35 Calculated Osmolality 272 (280-300) L 08/30/16 20:01 Calcium 8.9 mg/dL (8.6-10.8) 08/30/16 20:01 Amylase 23 Units/L (25-125) L 08/29/16 20:17 Lipase < 10 Units/L (8-78) 08/29/16 20:17 TSH 3.120 mcIU/mL (0.350-4.840) 08/29/16 20:17 Thyroxine (T4) 2.44 mcg/dL (4.87-11.72) L 08/29/16 20:17 Random Cortisol 22.2 mcg/dl 08/29/16 20:17 Blood Type O POSITIVE 08/30/16 08:28 Antibody Screen NEGATIVE 08/30/16 08:28 Radiographic studies: I personally reviewed and interpreted patient's most recent imaging studies dated 08/31/16. I discussed the findings with the patient today. KUB X-Ray 08/31/16 05:29 IMPRESSION: No significant change since prior exam. Enteric feeding tube tip still in the region of the antrum of the stomach. D/ / Rowdy Cannon MD / Rowdy Cannon MD Interpreting Provider: Rowdy Cannon MD Impression/recommendations: Metastatic melanoma: Widely disseminated disease involving brain, bone, liver multiple abdominal visceral organs. Currently on combination immunotherapy (Nivolumab plus Ipilimumab) Generalized multisystem symptoms Failure to thrive at home. 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 Hypoglycemia, hyponatremia, hyperkalemia, hypotension, lethargy suggest adrenal insufficiency. I'm not sure of his random cortisol level is compatible with distress response. For hypoglycemia, recommend to continue when necessary dextrose as you're doing. Since he is requiring multiple doses of dextrose, glucagon may be a better option to sustain normoglycemia. For suspected adrenal insufficiency, we'll continue Decadron as you're doing. If he is able to tolerate regular oral intake, we can switch to by mouth at same dose. He is severely dehydrated and we will need volume resuscitation. Cytopenias may be on an autoimmune basis. He needs complete anemia workup. Elevated LDH is likely related to patient's underlying melanoma. I'm not sure if his mental status changes is related to vasogenic edema from his left frontal brain lesion. I do not believe this is a new metastasis since this area was recently treated with [employer] in [place]. Dexamethasone should address concern about vasogenic edema and would also help with any immunotherapy side effects while workup is ongoing. Regarding his anemia and profound thrombocytopenia: He is not having any active bleeding and we will recommend CBC monitoring. Transfuse platelets to maintain counts greater than 20,000. Due to persistent anemia, we'll recommend to transfuse at least 1 unit of PRBC. Recommend complete anemia workup including iron panel, ferritin, B12, folate, direct Sia, haptoglobin, SPEP. For his cancer associated pain: Appreciate input from palliative care and I agree with current recommendation for pain management. We'll follow the patient per further with you. Please call with interval questions. Thank you for your excellent ongoing care for allowing us to see him while in- house. This report was created using voice recognition software and may contain errors. It was signed but not edited to expedite communication. - Constitutional Vitals: Vital Signs Temp Pulse Resp BP Pulse Ox 08/31/16 10:03 115 08/31/16 10:02 112 19 106/87 08/31/16 07:00 97.3 F L 108 16 109/77 97 08/31/16 03:31 97.7 F 105 14 106/73 96 08/31/16 00:58 101 13 95 08/30/16 23:51 97.6 F 98 17 109/80 95 08/30/16 20:45 108 08/30/16 19:54 98.0 F 104 17 122/84 97 08/30/16 15:11 97.3 F L 109 18 107/76 93 08/30/16 14:40 97.4 F L 106 16 114/94 96 08/30/16 11:40 98.1 F 105 12 111/83 95 08/30/16 11:16 98.1 F 110 14 111/75 Intake and Output 08/31/16 08/31/16 08/31/16 00:59 08:59 16:59 Intake Total 500 / 500 200 / 200 1100 / 1100 Output Total 380 / 380 280 / 280 Balance 120 / 120 -80 / -80 1100 / 1100 Intake: IV Fluids 1100 / 1100 Dextrose 50% (Vial) 100 1100 / 1100 ML In D5% And 0.9% Nacl 1000 Ml 1,000 ML @ 100 mls/hr IVC .Q11H [facility] Rx#: [id number] Oral 500 / 500 200 / 200 Free Water Intake Amount 0 / 0 Output: Gastric Tube Lavage 0 / 0 Amount Right Nare 0 / 0 Catheter 380 / 380 280 / 280 Other: Meal Dinner Percent of Meal Consumed 20% Weight 78.8 kg Blood Glucose* 61 109 97 Patient Weight 09/01/16 00:59 Weight 78.8 kg Oncology: Obj Data - Labs CBC & Chem 7: 08/31/16 04:41 08/30/16 20:01 Labs: Laboratory Results - last 24 hr 08/29/16 08/29/16 08/29/16 18:20 19:05 19:07 WBC RBC Hgb Hct MCV MCH MCHC RDW Plt Count MPV Immature Gran % Seg Neutrophils % Band Neutrophils % Lymphocytes % Monocytes % Eosinophils % Basophils % Myelocytes % Neutrophils # Lymphocytes # Monocytes # Eosinophils # Basophils # Nucleated RBCs/100 WBC Platelet Estimate Polychromasia Hypochromasia Anisocytosis Macrocytosis Target Cells Rouleaux Sodium Potassium Chloride Carbon Dioxide BUN Creatinine Est GFR ( Amer) Est GFR (Non-Af Amer) BUN/Creatinine Ratio Glucose POC Glucose 55 L 48 L* 58 Calculated Osmolality Calcium Blood Type Antibody Screen 08/29/16 08/29/16 08/29/16 20:18 21:19 22:27 WBC RBC Hgb Hct MCV MCH MCHC RDW Plt Count MPV Immature Gran % Seg Neutrophils % Band Neutrophils % Lymphocytes % Monocytes % Eosinophils % Basophils % Myelocytes % Neutrophils # Lymphocytes # Monocytes # Eosinophils # Basophils # Nucleated RBCs/100 WBC Platelet Estimate Polychromasia Hypochromasia Anisocytosis Macrocytosis Target Cells Rouleaux Sodium Potassium Chloride Carbon Dioxide BUN Creatinine Est GFR ( Amer) Est GFR (Non-Af Amer) BUN/Creatinine Ratio Glucose POC Glucose 96 H 72 54 L Calculated Osmolality Calcium Blood Type Antibody Screen 08/29/16 08/30/16 08/30/16 23:17 00:44 01:54 WBC RBC Hgb Hct MCV MCH MCHC RDW Plt Count MPV Immature Gran % Seg Neutrophils % Band Neutrophils % Lymphocytes % Monocytes % Eosinophils % Basophils % Myelocytes % Neutrophils # Lymphocytes # Monocytes # Eosinophils # Basophils # Nucleated RBCs/100 WBC Platelet Estimate Polychromasia Hypochromasia Anisocytosis Macrocytosis Target Cells Rouleaux Sodium Potassium Chloride Carbon Dioxide BUN Creatinine Est GFR ( Amer) Est GFR (Non-Af Amer) BUN/Creatinine Ratio Glucose POC Glucose 87 65 64 Calculated Osmolality Calcium Blood Type Antibody Screen 08/30/16 08/30/16 08/30/16 02:54 04:03 04:52 WBC RBC Hgb Hct MCV MCH MCHC RDW Plt Count MPV Immature Gran % Seg Neutrophils % Band Neutrophils % Lymphocytes % Monocytes % Eosinophils % Basophils % Myelocytes % Neutrophils # Lymphocytes # Monocytes # Eosinophils # Basophils # Nucleated RBCs/100 WBC Platelet Estimate Polychromasia Hypochromasia Anisocytosis Macrocytosis Target Cells Rouleaux Sodium Potassium Chloride Carbon Dioxide BUN Creatinine Est GFR ( Amer) Est GFR (Non-Af Amer) BUN/Creatinine Ratio Glucose POC Glucose 113 H 85 77 Calculated Osmolality Calcium Blood Type Antibody Screen 08/30/16 08/30/16 08/30/16 05:48 07:17 08:25 WBC RBC Hgb Hct MCV MCH MCHC RDW Plt Count MPV Immature Gran % Seg Neutrophils % Band Neutrophils % Lymphocytes % Monocytes % Eosinophils % Basophils % Myelocytes % Neutrophils # Lymphocytes # Monocytes # Eosinophils # Basophils # Nucleated RBCs/100 WBC Platelet Estimate Polychromasia Hypochromasia Anisocytosis Macrocytosis Target Cells Rouleaux Sodium Potassium Chloride Carbon Dioxide BUN Creatinine Est GFR ( Amer) Est GFR (Non-Af Amer) BUN/Creatinine Ratio Glucose POC Glucose 61 66 76 Calculated Osmolality Calcium Blood Type Antibody Screen 08/30/16 08/30/16 08/30/16 08:28 09:27 10:27 WBC RBC Hgb Hct MCV MCH MCHC RDW Plt Count MPV Immature Gran % Seg Neutrophils % Band Neutrophils % Lymphocytes % Monocytes % Eosinophils % Basophils % Myelocytes % Neutrophils # Lymphocytes # Monocytes # Eosinophils # Basophils # Nucleated RBCs/100 WBC Platelet Estimate Polychromasia Hypochromasia Anisocytosis Macrocytosis Target Cells Rouleaux Sodium Potassium Chloride Carbon Dioxide BUN Creatinine Est GFR ( Amer) Est GFR (Non-Af Amer) BUN/Creatinine Ratio Glucose POC Glucose 157 H 67 Calculated Osmolality Calcium Blood Type O POSITIVE Antibody Screen NEGATIVE 08/30/16 08/30/16 08/30/16 11:34 12:26 13:14 WBC RBC Hgb Hct MCV MCH MCHC RDW Plt Count MPV Immature Gran % Seg Neutrophils % Band Neutrophils % Lymphocytes % Monocytes % Eosinophils % Basophils % Myelocytes % Neutrophils # Lymphocytes # Monocytes # Eosinophils # Basophils # Nucleated RBCs/100 WBC Platelet Estimate Polychromasia Hypochromasia Anisocytosis Macrocytosis Target Cells Rouleaux Sodium Potassium Chloride Carbon Dioxide BUN Creatinine Est GFR ( Amer) Est GFR (Non-Af Amer) BUN/Creatinine Ratio Glucose POC Glucose 69 52 L 125 H Calculated Osmolality Calcium Blood Type Antibody Screen 08/30/16 08/30/16 08/30/16 14:02 15:09 15:25 WBC RBC Hgb Hct MCV MCH MCHC RDW Plt Count MPV Immature Gran % Seg Neutrophils % Band Neutrophils % Lymphocytes % Monocytes % Eosinophils % Basophils % Myelocytes % Neutrophils # Lymphocytes # Monocytes # Eosinophils # Basophils # Nucleated RBCs/100 WBC Platelet Estimate Polychromasia Hypochromasia Anisocytosis Macrocytosis Target Cells Rouleaux Sodium 127 L Potassium 5.5 H Chloride 93 L Carbon Dioxide 16 L BUN 35 H Creatinine 0.56 L Est GFR ( Amer) > 60 Est GFR (Non-Af Amer) > 60 BUN/Creatinine Ratio 63 H Glucose 52 L POC Glucose 92 H 72 Calculated Osmolality 269 L Calcium 9.0 Blood Type Antibody Screen 08/30/16 08/30/16 08/30/16 15:25 16:16 17:16 WBC 12.4 H RBC 3.18 L Hgb 7.5 L Hct 23.3 L MCV 73.3 L MCH 23.6 L MCHC 32.2 RDW 20.0 H Plt Count 43 L D MPV 9.2 L Immature Gran % Seg Neutrophils % 79.0 Band Neutrophils % 15.0 H Lymphocytes % 2.0 Monocytes % 3.0 Eosinophils % Basophils % Myelocytes % 1.0 H Neutrophils # 11.7 H Lymphocytes # 0.3 L Monocytes # 0.4 Eosinophils # Basophils # Nucleated RBCs/100 WBC 0.4 H Platelet Estimate Marked Decrease L Polychromasia 1+ A Hypochromasia Present A Anisocytosis 2+ A Macrocytosis Target Cells 1+ A Rouleaux Present A Sodium Potassium Chloride Carbon Dioxide BUN Creatinine Est GFR ( Amer) Est GFR (Non-Af Amer) BUN/Creatinine Ratio Glucose POC Glucose 78 72 Calculated Osmolality Calcium Blood Type Antibody Screen 08/30/16 08/30/16 08/30/16 18:14 19:01 20:01 WBC RBC Hgb Hct MCV MCH MCHC RDW Plt Count MPV Immature Gran % Seg Neutrophils % Band Neutrophils % Lymphocytes % Monocytes % Eosinophils % Basophils % Myelocytes % Neutrophils # Lymphocytes # Monocytes # Eosinophils # Basophils # Nucleated RBCs/100 WBC Platelet Estimate Polychromasia Hypochromasia Anisocytosis Macrocytosis Target Cells Rouleaux Sodium 128 L Potassium 5.7 H Chloride 95 L Carbon Dioxide 17 L BUN 37 H Creatinine 0.53 L Est GFR ( Amer) > 60 Est GFR (Non-Af Amer) > 60 BUN/Creatinine Ratio 70 H Glucose 47 L POC Glucose 71 66 Calculated Osmolality 272 L Calcium 8.9 Blood Type Antibody Screen 08/30/16 08/30/16 08/30/16 20:02 20:33 21:36 WBC RBC Hgb Hct MCV MCH MCHC RDW Plt Count MPV Immature Gran % Seg Neutrophils % Band Neutrophils % Lymphocytes % Monocytes % Eosinophils % Basophils % Myelocytes % Neutrophils # Lymphocytes # Monocytes # Eosinophils # Basophils # Nucleated RBCs/100 WBC Platelet Estimate Polychromasia Hypochromasia Anisocytosis Macrocytosis Target Cells Rouleaux Sodium Potassium Chloride Carbon Dioxide BUN Creatinine Est GFR ( Amer) Est GFR (Non-Af Amer) BUN/Creatinine Ratio Glucose POC Glucose 58 109 H 77 Calculated Osmolality Calcium Blood Type Antibody Screen 08/30/16 08/30/16 08/30/16 22:28 23:07 23:58 WBC RBC Hgb Hct MCV MCH MCHC RDW Plt Count MPV Immature Gran % Seg Neutrophils % Band Neutrophils % Lymphocytes % Monocytes % Eosinophils % Basophils % Myelocytes % Neutrophils # Lymphocytes # Monocytes # Eosinophils # Basophils # Nucleated RBCs/100 WBC Platelet Estimate Polychromasia Hypochromasia Anisocytosis Macrocytosis Target Cells Rouleaux Sodium Potassium Chloride Carbon Dioxide BUN Creatinine Est GFR ( Amer) Est GFR (Non-Af Amer) BUN/Creatinine Ratio Glucose POC Glucose 68 79 79 Calculated Osmolality Calcium Blood Type Antibody Screen 08/31/16 08/31/16 08/31/16 01:02 01:35 04:41 WBC 12.9 H RBC 3.37 L Hgb 8.0 L Hct 24.3 L MCV 72.1 L MCH 23.7 L MCHC 32.9 RDW 20.6 H Plt Count 30 L* MPV TNP Immature Gran % 6.2 H Seg Neutrophils % 82.2 Band Neutrophils % Lymphocytes % 8.1 Monocytes % 3.2 Eosinophils % 0.1 Basophils % 0.2 Myelocytes % Neutrophils # 10.6 H Lymphocytes # 1.0 Monocytes # 0.4 Eosinophils # 0.0 Basophils # 0.0 Nucleated RBCs/100 WBC 0.4 H Platelet Estimate Marked Decrease L Polychromasia Hypochromasia Anisocytosis 2+ A Macrocytosis Present A Target Cells Rouleaux Sodium Potassium Chloride Carbon Dioxide BUN Creatinine Est GFR ( Amer) Est GFR (Non-Af Amer) BUN/Creatinine Ratio Glucose POC Glucose 61 112 H Calculated Osmolality Calcium Blood Type Antibody Screen - Impressions Impressions KUB X-Ray 08/31/16 03:06 IMPRESSION: Tip of the feeding tube is likely within the proximal stomach. Consider advancement. D/ / 08/31/2016 07:56:20 Jarrod Dela Cruz MD / [email or web address] Interpreting Provider: Jarrod Dela Cruz MD KUB X-Ray 08/31/16 04:15 IMPRESSION: Feeding tube tip projects over the gastric body. D/ / Vladimir Holloway MD / Vladimir Holloway MD Interpreting Provider: Vladimir Holloway MD X-Ray 08/31/16 05:29 IMPRESSION: No significant change since prior exam. Enteric feeding tube tip still in the region of the antrum of the stomach. D/ / Rowdy Cannon MD / Rowdy Cannon MD Interpreting Provider: Rowdy Cannon MD Consult Discharge Plan - Plan Referrals: NO,PCP [Primary Care Provider] -
[2016-08-31 13:27] LABS: % Iron Saturation 56 % (20-55); Iron 61 mcg/dL (65-175); Lactate Dehydrogenase 2541 Units/L (159-327); Transferrin 78 mg/dL (174-364)
[2016-08-31 13:39] LABS: Thyroid Stimulating Hormone 3.069 mcIU/mL (0.350-4.840)
[2016-08-31 13:54] LABS: Folate 4.5 ng/mL (7.0-31.4)
[2016-08-31 13:55] LABS: Vitamin B12 > 2000 pg/mL (213-816)
[2016-08-31 14:14] LABS: Ferritin 10671 ng/ml (22-275)
[2016-09-01] MEDS: *HR* Dextrose 50 % in Water (Syg) 50 ML SYRINGE IVP PRN ×7 (00:15→23:18)
[2016-09-01] MEDS: Metoclopramide 10 MG/2 ML VIAL IVP SCH ×3 (00:15→15:48)
[2016-09-01 05:09] LABS: Nucleated Red Blood Cells 0.9 /100 WBC (0)
[2016-09-01 05:10] LABS: Hematocrit 25.9 % (37.5-50.1); Hemoglobin 8.2 g/dL (12.9-16.9); Immature Platelets 16.1 % (1.1-6.1); Mean Corpuscular HGB Conc 31.7 g/dL (31.6-35.5); Mean Corpuscular Hemoglobin 23.5 pg (28.0-33.3); Mean Corpuscular Volume 74.2 fL (83.0-100.0); Red Blood Count 3.49 M/mcL (4.19-5.50); Red Cell Distribution Width 21.2 % (11.5-14.5)
[2016-09-01 05:14] LABS: Platelet Count 20 K/mcL (140-400)
[2016-09-01 05:37] LABS: Lymphocytes # 2.1 K/mcL (0.6-4.6); Monocytes # 1.3 K/mcL (0.0-1.3); Neutrophils # 9.7 K/mcL (1.6-8.9)
[2016-09-01 05:38] LABS: Anisocytosis 2+ (Not Present)
[2016-09-01 05:39] LABS: Hypochromasia Present (Not Present); Platelet Estimate Marked Decrease (Normal)
[2016-09-01] MEDS: Levothyroxine 25 MCG TABLET PO SCH (06:31)
[2016-09-01] MEDS: *HR* OxyCODONE ER (12 HR) 10 MG TABLET PO SCH (06:31)
--- NOTE | 2016-09-01 08:58 | Palliative Progress Note ---
Date of Encounter: 09/01/16 Time of Encounter: 07:10 - Assessment and plan (1) Hypoglycemia Current Visit: No Status: Acute Assessment and plan: [place] to be secondary to immune therapy, patient is on a dextrose drip.the patient continues to require frequent doses of D50 as well. he has pulled out his feeding tube I am told 5 times area (2) Failure to thrive in adult Current Visit: Yes Status: Acute Assessment and plan: Nutrition is already following, will encourage by mouth intake. And supplements. The patient is not able to make decisions, however when I did ask him if he wanted to have the NG tube put back and he said no. I plan to discuss this further with family. (3) Goals of care, counseling/discussion Current Visit: Yes Status: Acute Assessment and plan: The patient does not have a medical power of armed security professional, he has not done his advanced directives. Brittany which currently is his sister and his girlfriend of 13 years should be in this afternoon around 1300. I plan to speak with them. It appears the patient wishes to have aggressive therapy. He wishes to achieve this, he will need to work on his nutrition, also have a code discussion as feel that his prognosis would be Auch pot him if he were to have a cardiac arrest with the amount of disease burden that he has. I think the likelihood of any meaningful recovery would be extremely poor. He patient is far too somnolent at this time to have a proper discussion, I will have to defer to his family. Although awake this morning I do not believe he has the capacity to make any decisions at this point and we will continue to go with the previous decisions made by his family. (4) Cancer associated pain Current Visit: Yes Status: Acute Assessment and plan: The patient has been on long-lasting morphine, however I have now stop this entirely. I have made his rate through doses available every couple of hours. IV dose continues to be available if by mouth does not help him, I am hoping that staff gives the oral medication a chance to work before going to the IV educations. Current oral morphine equivalents over the last 24 hours total 100 mg. I do not think he needs to have this much and will make his instant release oxycodone available at 20 mg every 2 hours if needed. IV fentanyl as backup is still in place. I think his pain can be controlled adequately with oral medications. (5) Metastatic melanoma Current Visit: No Status: Chronic Assessment and plan: On immune therapy from the cancer center. It appears the patient wishes to be centered for an continue on aggressive therapy. We will plan on this. And will discuss with family later on today. - Time Spent With Patient Total time spent is greater than 50% in coordination of care (as documented) at patient's floor/unit and/or counseling patient: - Subjective Interval history: The patient is quite weak this morning, however his blood sugars 35 and he is not comprehending well what is going on around him. He is insisting that he should be able to go home and eat, however he has not been eating. He wishes to Have the Harris out and he has removed his NG tube or the nursing staff 5 times, and it is currently out. I do not believe he has capacity to make decisions at this time. - Constitutional Vitals: Abnormal lab results WBC 13.1 K/mcL (4.3-11.1) H 09/01/16 04:55 RBC 3.49 M/mcL (4.19-5.50) L 09/01/16 04:55 Hgb 8.2 g/dL (12.9-16.9) L 09/01/16 04:55 Hct 25.9 % (37.5-50.1) L 09/01/16 04:55 MCV 74.2 fL (83.0-100.0) L 09/01/16 04:55 MCH 23.5 pg (28.0-33.3) L 09/01/16 04:55 RDW 21.2 % (11.5-14.5) H 09/01/16 04:55 Plt Count 20 K/mcL (140-400) L* 09/01/16 04:55 Immature Gran % 6.2 % (0-4) H 08/31/16 04:41 Band Neutrophils % 10.0 % (0-4) H 09/01/16 04:55 Myelocytes % 1.0 % (0) H 08/30/16 15:25 Promyelocytes % 2.0 % (0) H 08/30/16 07:46 Neutrophils # 9.7 K/mcL (1.6-8.9) H 09/01/16 04:55 Nucleated RBCs/100 WBC 0.9 /100 WBC (0) H 09/01/16 04:55 Platelet Estimate Marked Decrease (Normal) L 09/01/16 04:55 Large Platelets Present (Not Present) A 08/29/16 20:17 Immature Plt Fraction 16.1 % (1.1-6.1) H 09/01/16 04:55 Polychromasia 1+ (Not Present) A 08/30/16 15:25 Hypochromasia Present (Not Present) A 09/01/16 04:55 Poikilocytosis 2+ (Not Present) A 08/30/16 07:46 Anisocytosis 2+ (Not Present) A 09/01/16 04:55 Macrocytosis Present (Not Present) A 08/31/16 04:41 Target Cells 1+ (Not Present) A 08/30/16 15:25 Tear Drop Cells 1+ (Not Present) A 08/30/16 07:46 Rouleaux Present (Not Present) A 08/30/16 15:25 Schistocytes 1+ (Not Present) A 08/30/16 07:46 Sodium 128 mEq/L (136-145) L 08/30/16 20:01 Potassium 5.7 mEq/L (3.5-4.5) H 08/30/16 20:01 Chloride 95 mEq/L (98-109) L 08/30/16 20:01 Carbon Dioxide 17 mEq/L (19-29) L 08/30/16 20:01 BUN 37 mg/dL (8-26) H 08/30/16 20:01 Creatinine 0.53 mg/dL (0.72-1.25) L 08/30/16 20:01 BUN/Creatinine Ratio 70 (6-26) H 08/30/16 20:01 Glucose 47 mg/dL (70-99) L 08/30/16 20:01 Calculated Osmolality 272 (280-300) L 08/30/16 20:01 Iron 61 mcg/dL (65-175) L 08/31/16 12:52 % Saturation 56 % (20-55) H 08/31/16 12:52 Transferrin 78 mg/dL (174-364) L 08/31/16 12:52 Ferritin 04973 ng/ml (22-275) H 08/31/16 12:52 Lactate Dehydrogenase 2541 Units/L (159-327) H 08/31/16 12:52 Amylase 23 Units/L (25-125) L 08/29/16 20:17 Vitamin B12 > 2000 pg/mL (213-816) H 08/31/16 12:52 Folate 4.5 ng/mL (7.0-31.4) L 08/31/16 12:52 Thyroxine (T4) 2.10 mcg/dL (4.87-11.72) L 08/31/16 12:52 General appearance: Present: no acute distress - Head Head exam: Present: atraumatic, normal inspection - Eye Eye exam: Present: normal appearance - ENT ENT exam: Present: mucous membranes moist - Respiratory Respiratory exam: Present: CTAB - Cardiovascular Cardiovascular exam: Present: RRR, tachycardia - GI/Abdominal GI/Abdominal exam: Present: normal bowel sounds, soft. Absent: tenderness - Extremities Exam Extremities exam: Present: normal inspection. Absent: pedal edema, tenderness - Neurological Exam Neurological exam: Present: alert, altered - Psychiatric Psychiatric exam: Present: agitated (Mildly). Absent: anxious - Skin Skin exam: Present: dry, warm Palliative Quality Palliative Quality: Screen for Code Status: Yes, Screen for Goals of Care: Yes, Screen for Pain: Yes, If Pain Regimen Started, Initiate Bowel Regimen: Yes ( Restart regimen today), Screen for Nausea/Vomitting: Yes (None reported) Code Status: 08/29/16 04:57 Resuscitation Status: Active [RES] Routine Comment: Resuscitation Status: Full Code - Labs CBC & Chem 7: 09/01/16 04:55 08/30/16 20:01 Labs: Laboratory Results - last 24 hr 08/31/16 08/31/16 08/31/16 02:28 03:30 03:57 WBC RBC Hgb Hct MCV MCH MCHC RDW Plt Count MPV Seg Neutrophils % Band Neutrophils % Lymphocytes % Monocytes % Neutrophils # Lymphocytes # Monocytes # Nucleated RBCs/100 WBC Platelet Estimate Immature Plt Fraction Hypochromasia Anisocytosis POC Glucose 80 63 101 H Iron % Saturation Transferrin Ferritin Lactate Dehydrogenase Vitamin B12 Folate TSH Thyroxine (T4) 08/31/16 08/31/16 08/31/16 05:00 05:57 07:01 WBC RBC Hgb Hct MCV MCH MCHC RDW Plt Count MPV Seg Neutrophils % Band Neutrophils % Lymphocytes % Monocytes % Neutrophils # Lymphocytes # Monocytes # Nucleated RBCs/100 WBC Platelet Estimate Immature Plt Fraction Hypochromasia Anisocytosis POC Glucose 70 70 65 Iron % Saturation Transferrin Ferritin Lactate Dehydrogenase Vitamin B12 Folate TSH Thyroxine (T4) 08/31/16 08/31/16 08/31/16 07:30 08:13 09:54 WBC RBC Hgb Hct MCV MCH MCHC RDW Plt Count MPV Seg Neutrophils % Band Neutrophils % Lymphocytes % Monocytes % Neutrophils # Lymphocytes # Monocytes # Nucleated RBCs/100 WBC Platelet Estimate Immature Plt Fraction Hypochromasia Anisocytosis POC Glucose 113 H 109 H 70 Iron % Saturation Transferrin Ferritin Lactate Dehydrogenase Vitamin B12 Folate TSH Thyroxine (T4) 08/31/16 08/31/16 08/31/16 10:52 12:01 12:52 WBC RBC Hgb Hct MCV MCH MCHC RDW Plt Count MPV Seg Neutrophils % Band Neutrophils % Lymphocytes % Monocytes % Neutrophils # Lymphocytes # Monocytes # Nucleated RBCs/100 WBC Platelet Estimate Immature Plt Fraction Hypochromasia Anisocytosis POC Glucose 97 H 74 Iron 61 L % Saturation 56 H Transferrin 78 L Ferritin 14639 H Lactate Dehydrogenase 2541 H Vitamin B12 Folate TSH Thyroxine (T4) 08/31/16 08/31/16 08/31/16 12:52 12:52 13:08 WBC RBC Hgb Hct MCV MCH MCHC RDW Plt Count MPV Seg Neutrophils % Band Neutrophils % Lymphocytes % Monocytes % Neutrophils # Lymphocytes # Monocytes # Nucleated RBCs/100 WBC Platelet Estimate Immature Plt Fraction Hypochromasia Anisocytosis POC Glucose 75 Iron % Saturation Transferrin Ferritin Lactate Dehydrogenase Vitamin B12 > 2000 H Folate 4.5 L TSH 3.069 Thyroxine (T4) 2.10 L 08/31/16 08/31/16 08/31/16 14:02 14:49 15:52 WBC RBC Hgb Hct MCV MCH MCHC RDW Plt Count MPV Seg Neutrophils % Band Neutrophils % Lymphocytes % Monocytes % Neutrophils # Lymphocytes # Monocytes # Nucleated RBCs/100 WBC Platelet Estimate Immature Plt Fraction Hypochromasia Anisocytosis POC Glucose 77 68 86 Iron % Saturation Transferrin Ferritin Lactate Dehydrogenase Vitamin B12 Folate TSH Thyroxine (T4) 08/31/16 08/31/16 08/31/16 16:50 17:44 18:51 WBC RBC Hgb Hct MCV MCH MCHC RDW Plt Count MPV Seg Neutrophils % Band Neutrophils % Lymphocytes % Monocytes % Neutrophils # Lymphocytes # Monocytes # Nucleated RBCs/100 WBC Platelet Estimate Immature Plt Fraction Hypochromasia Anisocytosis POC Glucose 82 66 70 Iron % Saturation Transferrin Ferritin Lactate Dehydrogenase Vitamin B12 Folate TSH Thyroxine (T4) 08/31/16 08/31/16 08/31/16 19:54 21:00 22:11 WBC RBC Hgb Hct MCV MCH MCHC RDW Plt Count MPV Seg Neutrophils % Band Neutrophils % Lymphocytes % Monocytes % Neutrophils # Lymphocytes # Monocytes # Nucleated RBCs/100 WBC Platelet Estimate Immature Plt Fraction Hypochromasia Anisocytosis POC Glucose 70 61 52 L Iron % Saturation Transferrin Ferritin Lactate Dehydrogenase Vitamin B12 Folate TSH Thyroxine (T4) 08/31/16 09/01/16 23:02 04:55 WBC 13.1 H RBC 3.49 L Hgb 8.2 L Hct 25.9 L MCV 74.2 L MCH 23.5 L MCHC 31.7 RDW 21.2 H Plt Count 20 L* MPV TNP Seg Neutrophils % 64.0 Band Neutrophils % 10.0 H Lymphocytes % 16.0 Monocytes % 10.0 Neutrophils # 9.7 H Lymphocytes # 2.1 Monocytes # 1.3 Nucleated RBCs/100 WBC 0.9 H Platelet Estimate Marked Decrease L Immature Plt Fraction 16.1 H Hypochromasia Present A Anisocytosis 2+ A POC Glucose 80 Iron % Saturation Transferrin Ferritin Lactate Dehydrogenase Vitamin B12 Folate TSH Thyroxine (T4) - Impressions Impressions K[facility] X-Ray 08/31/16 03:06 IMPRESSION: Tip of the feeding tube is likely within the proximal stomach. Consider advancement. D/ / 08/31/2016 07:56:20 Jarrod Dela Cruz MD / sally Interpreting Provider: Jarrod Dela Cruz MD Consult Discharge Plan - Plan Referrals: NO,PCP [Primary Care Provider] -
[2016-09-01] MEDS: Sennosides/Docusate Sodium TABLET PO SCH ×2 (09:06→21:00)
[2016-09-01] MEDS: DEXTROSE IVC SCH ×2 (09:06→20:56)
[2016-09-01] MEDS: D5 IVC SCH ×2 (09:06→20:56)
[2016-09-01] MEDS: Dexamethasone 4 MG/ML VIAL IVP SCH ×3 (09:06→20:58)
[2016-09-01] MEDS: Nystatin SUSP 5 ML UD.LIQ PO SCH ×4 (09:06→20:59)
[2016-09-01] MEDS: WATER IVC SCH ×2 (09:06→20:56)
[2016-09-01] MEDS: NACL IVC SCH ×2 (09:06→20:56)
[2016-09-01] MEDS: *HR* OxyCODONE Immed Rel 5 MG TABLET PO PRN ×3 (12:31→20:46)
[2016-09-01 13:34] LABS: ANA IgG by ELISA NONE DETECTED (None Detected)
[2016-09-01] MEDS: *HR* HYDROmorphone 2 MG/ML SYRINGE IVP PRN ×2 (17:46→22:09)
--- NOTE | 2016-09-01 19:39 | Internal Med Progress Note ---
Date of Encounter: 08/31/16 (Patient was seen on August 31 however progress note was not entered and it is a late entry.) Time of Encounter: 11:00 - Assessment and plan (1) Hypoglycemia Current Visit: Yes Status: Acute (2) Thrombocytopenia Current Visit: Yes Status: Chronic (3) Failure to thrive in adult Current Visit: Yes Status: Acute (4) DVT prophylaxis Current Visit: Yes Status: Acute (5) Hyponatremia Current Visit: Yes Status: Chronic (6) Cancer associated pain Current Visit: Yes Status: Acute (7) Metastatic melanoma Current Visit: Yes Status: Chronic - Subjective Interval history: Mr. Reddy Sandoval is a 41-year-old male admitted for hypoglycemia. He has underlying metastatic malignant melanoma which has already spread to his brain lungs bones and abdominal organs. He underwent CyberKnife treatment in [place]. One of his brain lesion. By appearance patient is cachectic and has very poor by mouth intake and seems quite depressed and lethargic. He is on immunotherapy. He has pancytopenia. Oncology and palliative care is on case. Metabolic workup for anemia including iron studies B12 folic acid and TSH are within normal range. His LDH is elevated but this is perhaps related to his malignant melanoma. Adrenal insufficiency suspected however random cortisol level is in the range of 22. He is on Decadron and am not sure if this level was drawn after starting the decadron. Overall his hemoglobin is stable in the range of 8 and platelets are slowly dropping and now close to 20,000. Target is to keep platelets above 20,000 especially because there is no evidence of bleeding. His hyperglycemia is is still not controlled and he has been receiving multiple doses of D50. He has an NG tube and tube feeds have been restarted. However he did not tolerate those very well and had quite a bit of residual there. We have added some Reglan and scheduled Colace. tube feeds were stopped for 2 hours and then restarted at lower dose which she tolerated better. In his family members one of his sister is really close to him and plays a role of primary caregiver. He has one child he could not tell me if the child stays with him how old is her. We tried to discuss the discharge plan with patient however he insists to go home and does not accept any alternate plans. - Constitutional Vitals: Temp Pulse Resp BP Pulse Ox 97.3 F L 121 16 113/87 98 09/01/16 15:06 09/01/16 16:25 09/01/16 15:06 09/01/16 15:06 09/01/16 11:01 General appearance: Present: cachectic, A&O X 0, A&O X 1, no acute distress, loss of weight. Absent: answers questions appropriately - Head Head exam: Present: atraumatic, normocephalic - Eye Eye exam: Present: PERRL, conjuntiva pink, sclera anicteric Pupils: Present: PERRL - Neck Neck exam general surgery: Present: supple, trachea midline. Absent: lymphadenopathy - Respiratory Respiratory exam: Present: CTAB. Absent: accessory muscle use, rales, rhonchi, wheezes - Cardiovascular Cardiovascular exam: Present: RRR, +S1, +S2. Absent: diastolic murmur, gallop, rubs, systolic murmur - GI/Abdominal GI/Abdominal exam: Present: normal bowel sounds, soft, no peritoneal signs. Absent: distended, tenderness - Extremities Exam Extremities exam: Present: warm, radial pulses palpable and symetrical. Absent : calf tenderness, cyanotic, pedal edema - Neurological Exam Neurological exam: Present: CN II-XII intact, no focal deficits. Absent: pronater drift, facial droop, speech deficit Additional comments: Lethargic but nonfocal able to move all extremities plantar reflex bilaterally down( - Skin Skin exam: Present: dry, intact Internal Medicine: Result - Labs CBC & Chem 7: 09/01/16 04:55 08/30/16 20:01 Labs: Short CBC 09/01/16 Range/Units 04:55 WBC 13.1 H (4.3-11.1) K/mcL Hgb 8.2 L (12.9-16.9) g/dL Hct 25.9 L (37.5-50.1) % Plt Count 20 L* (140-400) K/mcL Neutrophils # 9.7 H (1.6-8.9) K/mcL - Impressions Impressions KUB X-Ray 08/31/16 03:06 IMPRESSION: Tip of the feeding tube is likely within the proximal stomach. Consider advancement. D/ / 08/31/2016 07:56:20 Jarrod Dela Cruz MD / sally Interpreting Provider: Jarrod Dela Cruz MD - VTE Documentation of Mechanical Device: Graduated compression elastic hosiery Consult Discharge Plan - Plan Referrals: NO,PCP [Primary Care Provider] -
--- NOTE | 2016-09-01 19:46 | Internal Med Progress Note ---
Date of Encounter: 09/01/16 Time of Encounter: 19:43 - Assessment and plan (1) Hypoglycemia Current Visit: Yes Status: Acute (2) Thrombocytopenia Current Visit: Yes Status: Chronic (3) Failure to thrive in adult Current Visit: Yes Status: Acute (4) DVT prophylaxis Current Visit: Yes Status: Acute (5) Hyponatremia Current Visit: Yes Status: Chronic (6) Cancer associated pain Current Visit: Yes Status: Acute (7) Metastatic melanoma Current Visit: Yes Status: Chronic - Subjective Interval history: Mr. Reddy Sandoval is a 41-year-old male admitted for hypoglycemia. He has underlying metastatic malignant melanoma which has already spread to his brain lungs bones and abdominal organs. He underwent CyberKnife treatment in [place]. One of his brain lesion. By appearance patient is cachectic and has very poor by mouth intake and seems quite depressed and lethargic. He is on immunotherapy. He has pancytopenia. Oncology and palliative care is on case. Metabolic workup for anemia including iron studies B12 folic acid and TSH are within normal range. His LDH is elevated but this is perhaps related to his malignant melanoma. Adrenal insufficiency suspected however random cortisol level is in the range of 22. He is on Decadron and am not sure if this level was drawn after starting the decadron. Overall his hemoglobin is stable in the range of 8 and platelets are slowly dropping and now close to 20,000. Target is to keep platelets above 20,000 especially because there is no evidence of bleeding. His hyperglycemia is is still not controlled and he has been receiving multiple doses of D50. He has an NG tube and tube feeds have been restarted. However he did not tolerate those very well and had quite a bit of residual there. We have added some Reglan and scheduled Colace. tube feeds were stopped for 2 hours and then restarted at lower dose which she tolerated better. In his family members one of his sister is really close to him and plays a role of primary caregiver. He has one child he could not tell me if the child stays with him how old is her. We tried to discuss the discharge plan with patient however he insists to go home and does not accept any alternate plans. 7 relatively more awake today. He pulled out his Dobbhoff tube however he is agreeable and allowing us to reinserted. Continues to have hyperglycemia which need when necessary D50 treatments. Oncology and to palliative care and cell counts are reasonably stable except thrombocytopenia which is worsening. According to oncology this could be due to immune therapy. Most of the complication we are seeing right now up probably related to immune therapy except hyperglycemia which are which is though known to be caused by his medication but could also be due to metastatic liver disease contributing to poor gluconeogenesis. In any case I think While we put the NG tube and his need for D50 supplementation was very low and if he allows us to put it back probably this would be a good solution. Will discuss with oncology about the long-term prognosis which at this time seems pretty poor. I had a detailed meeting with patient and then later with his family in his presence will be made our recommendations including ECF place placement. Sr. has indicated that she would not be able to provide 24 7 care however his girlfriend who does not work is willing to remain involved in his care. Detailed meeting with case management. Follow cell counts and electrolytes - Constitutional Vitals: Temp Pulse Resp BP Pulse Ox 97.3 F L 121 16 113/87 98 09/01/16 15:06 09/01/16 16:25 09/01/16 15:06 09/01/16 15:06 09/01/16 11:01 General appearance: Present: cachectic, A&O X 0, A&O X 1, no acute distress, loss of weight. Absent: answers questions appropriately - Head Head exam: Present: atraumatic, normocephalic - Eye Eye exam: Present: PERRL, conjuntiva pink, sclera anicteric Pupils: Present: PERRL - Neck Neck exam general surgery: Present: supple, trachea midline. Absent: lymphadenopathy - Respiratory Respiratory exam: Present: CTAB. Absent: accessory muscle use, rales, rhonchi, wheezes - Cardiovascular Cardiovascular exam: Present: RRR, +S1, +S2. Absent: diastolic murmur, gallop, rubs, systolic murmur - GI/Abdominal GI/Abdominal exam: Present: normal bowel sounds, soft, no peritoneal signs. Absent: distended, tenderness - Extremities Exam Extremities exam: Present: warm, radial pulses palpable and symetrical. Absent : calf tenderness, cyanotic, pedal edema - Neurological Exam Neurological exam: Present: CN II-XII intact, no focal deficits. Absent: pronater drift, facial droop, speech deficit Additional comments: Lethargic but oriented to time and place and person. Moving all extremities and follow commands - Skin Skin exam: Present: dry, intact Internal Medicine: Result - Labs CBC & Chem 7: 09/01/16 04:55 08/30/16 20:01 Labs: Short CBC 09/01/16 Range/Units 04:55 WBC 13.1 H (4.3-11.1) K/mcL Hgb 8.2 L (12.9-16.9) g/dL Hct 25.9 L (37.5-50.1) % Plt Count 20 L* (140-400) K/mcL Neutrophils # 9.7 H (1.6-8.9) K/mcL - Impressions Impressions KUB X-Ray 08/31/16 03:06 IMPRESSION: Tip of the feeding tube is likely within the proximal stomach. Consider advancement. D/ / 08/31/2016 07:56:20 [facility] Inter[facility] Provider: Jarrod Dela Cruz MD - VTE Documentation of Mechanical Device: Graduated compression elastic hosiery Consult Discharge Plan - Plan Referrals: NO,PCP [Primary Care Provider] -
[2016-09-01] MEDS ORDERED: D10% in Water 500 ML IVC ONE (20:40)
[2016-09-01] MEDS ORDERED: Bisacodyl 10 MG RECTAL SUPPOSITORY RC SCH (21:00)
[2016-09-02] MEDS: *HR* Dextrose 50 % in Water (Syg) 50 ML SYRINGE IVP PRN ×5 (00:45→12:07)
[2016-09-02] MEDS: Metoclopramide 10 MG/2 ML VIAL IVP SCH ×2 (00:50→08:05)
[2016-09-02] MEDS: *HR* OxyCODONE Immed Rel 5 MG TABLET PO PRN ×2 (01:03→07:17)
[2016-09-02] MEDS: *HR* HYDROmorphone 2 MG/ML SYRINGE IVP PRN ×3 (02:55→12:04)
[2016-09-02] MEDS: Levothyroxine 25 MCG TABLET PO SCH (05:27)
[2016-09-02 05:59] LABS: Basophils % 0.2 %; Eosinophils % 0.1 %; Hematocrit 26.2 % (37.5-50.1); Immature Granulocytes % 10.8 % (0-4); Lymphocytes # 1.3 K/mcL (0.6-4.6); Lymphocytes % 10.9 %; Mean Corpuscular HGB Conc 30.5 g/dL (31.6-35.5); Mean Corpuscular Volume 75.3 fL (83.0-100.0); Monocytes # 0.3 K/mcL (0.0-1.3); Monocytes % 2.7 %; Neutrophils # 9.1 K/mcL (1.6-8.9); Nucleated Red Blood Cells 2.4 /100 WBC (0); Red Blood Count 3.48 M/mcL (4.19-5.50); Segmented Neutrophils % 75.3 %
[2016-09-02 06:07] LABS: Platelet Count 12 K/mcL (140-400)
[2016-09-02 06:39] LABS: Anisocytosis 2+ (Not Present); Burr Cells 2+ (Not Present); Hypochromasia Present (Not Present); Platelet Estimate Marked Decrease (Normal); Polychromasia 1+ (Not Present)
[2016-09-02 06:49] VITALS: BP 111/84
[2016-09-02] MEDS ORDERED: Morphine Oral CONC 5 MG/0.25 ML ORAL.SYG PO PRN (07:29)
[2016-09-02] MEDS: DEXTROSE IVC SCH (08:01)
[2016-09-02] MEDS: NACL IVC SCH (08:01)
[2016-09-02] MEDS: WATER IVC SCH (08:01)
[2016-09-02] MEDS: D5 IVC SCH (08:01)
[2016-09-02] MEDS: Nystatin SUSP 5 ML UD.LIQ PO SCH (08:02)
[2016-09-02] MEDS: Sennosides/Docusate Sodium TABLET PO SCH (08:02)
[2016-09-02] MEDS: Dexamethasone 4 MG/ML VIAL IVP SCH (08:05)
--- NOTE | 2016-09-02 08:31 | Event Note ---
Date of Encounter: 09/02/16 Time of Encounter: 09:00 Met with patient, friend, sister and additional family members and discussed extent of disease with brain, liver mets, marrow involvement cytopenia from the same and rapid decline in PS, poor prognosis. BRAF sent 08/27/16 to [facility] labs, results pending- d/w pathology yesterday. s/p cyberknife to brain and immunotherapy treatment one cycle hospitalized with poor PO intake, confusion ( steroids), not wanting NG tube for feeds, unable to take meds. Due to decline in general condition-not a candidate for further therapy/oral BRAF targeted Rx. Hospice option was discussed and family would like him to stay with in-patient hospice care as doubtful if friend would be able to provide care for him at home. They will further discuss this with palliative care today. I have communicated with Dr Soliz yesterday the outcome of family meeting and their wish to transition to hospice care.
--- NOTE | 2016-09-02 08:40 | Palliative Progress Note ---
Date of Encounter: 09/02/16 Time of Encounter: 07:25 - Assessment and plan (1) Hypoglycemia Current Visit: Yes Status: Acute Assessment and plan: [place] to be secondary to immune therapy, patient is on a dextrose drip.the patient continues to require frequent doses of D50 as well. He has now pulled out his feeding tube over 7 times, family has asked that it not be attempted for replacement. While there have been a couple of over 100 primarily the patient has been under 100 on his blood sugars. Is on a D10 drip. With 7 doses of D50 over the course of the day yesterday. His maximum sugar was 167 (2) Failure to thrive in adult Current Visit: Yes Status: Acute Assessment and plan: Nutrition is already following, will encourage by mouth intake. And supplements. Patient has repeatedly pulled out NG tube and has not been eating. Believe this is actually a preterminal event as the patient has not had adequate nutrition for a while, she is no longer considered a candidate for immune therapy due to his poor nutritional state. Do not think he can tolerate a PEG tube, I believe that he would end up pulling it out as well.. (3) Goals of care, counseling/discussion Current Visit: Yes Status: Acute Assessment and plan: The patient does not have a medical power of employment law attorney, he has not done his advanced directives. Family which currently is his sister and his girlfriend of 13 years I have met with them repeatedly, he should not sister's the family spokesperson and speaks with the authority of the family. She has been in contact with both of her brothers as well as the patient's girlfriend are all they have all been in agreement. Yesterday I met with the patient's sister and his girlfriend and they made him DNR CCA DNI. At this point the patient has wanted to have aggressive therapy, however according to my discussion with Dr. Kenny sinclair and from oncology there really is not anything left for oncology to offer at this point. I will discuss with the family with to all of the aggressive care that he has been receiving for his endocrinopathy. At this point in time the immunotherapy is on hold anyway, if the patient were to recover from this might possibly be able to be reconsidered for that. Whenever I believe based on his blood sugars if we stop the cost and infusion of sugar, as well as is not wanting to eat I do not expect him to last more than a month.. extenssive discussion with family, includiing hsi sister (family spoksperson) girlfriend, daughter brother and sister in law. They have decided in favor of hospice. This lesion was prompted by the patient's inability to maintain any reasonable caloric intake and his inability to tolerate an NG tube. The patient 's family met with Dr. Kenny sinclair and from oncology yesterday and she confirmed that they have nothing further to offer since his overall state seems to be dropping so quickly due to the autoimmune effects of the immunotherapy. The patient will be moved to inpatient hospice to provide for symptom control as he transitions off the areas medications designed to keep his blood sugar up. She will transfer to inpatient hospice today. I have requested that the hospitalist discharge him and I will readmit. (4) Cancer associated pain Current Visit: Yes Status: Acute Assessment and plan: The patient had his pain adequately treated. However the nursing staff last night noted that the amount of effort the patient was having to take to be able to get his pain medications in was excessive and was exhausting him. Therefore they requested having his IV medications made a little bit more frequent I have done this I have also changed him from pills to liquid medications for administration.. (5) Metastatic melanoma Current Visit: Yes Status: Chronic Assessment and plan: On immune therapy from the cancer center. It appears the patient has no more options given the fact that he has not been able or willing to eat. Patient's also pulled out his NG tube multiple times. I do not believe that he is a candidate for PEG tube due to his bad experience thus far with an NG tube. [facility] does not feel yet they have anything further to offer given his current state.. - Time Spent With Patient Total time spent is greater than 50% in coordination of care (as documented) at patient's floor/unit and/or counseling patient: - Subjective Interval history: The patient is quite weak this morning, his blood sugar is actually a little bit better today. Did have a restless night, and when he has taken his oral medications and been effective however it has been very difficult for him to swallow them he has had to chew them up and it has taken a great deal out of him per the nursing staff. Patient and family met with oncology yesterday and then oncology call me, they are feeling the patient would not be able tolerate any further immune therapy, and they were recommending hospice. Specifically inpatient hospice. At this time the patient does not appear to be in any distress and has no complaints of.. - Constitutional Vitals: Abnormal lab results WBC 12.1 K/mcL (4.3-11.1) H 09/02/16 05:45 RBC 3.48 M/mcL (4.19-5.50) L 09/02/16 05:45 Hgb 8.0 g/dL (12.9-16.9) L 09/02/16 05:45 Hct 26.2 % (37.5-50.1) L 09/02/16 05:45 MCV 75.3 fL (83.0-100.0) L 09/02/16 05:45 MCH 23.0 pg (28.0-33.3) L 09/02/16 05:45 MCHC 30.5 g/dL (31.6-35.5) L 09/02/16 05:45 RDW 22.0 % (11.5-14.5) H 09/02/16 05:45 Plt Count 12 K/mcL (140-400) L* 09/02/16 05:45 Immature Gran % 10.8 % (0-4) H 09/02/16 05:45 Band Neutrophils % 10.0 % (0-4) H 09/01/16 04:55 Myelocytes % 1.0 % (0) H 08/30/16 15:25 Promyelocytes % 2.0 % (0) H 08/30/16 07:46 Neutrophils # 9.1 K/mcL (1.6-8.9) H 09/02/16 05:45 Nucleated RBCs/100 WBC 2.4 /100 WBC (0) H 09/02/16 05:45 Platelet Estimate Marked Decrease (Normal) L 09/02/16 05:45 Large Platelets Present (Not Present) A 08/29/16 20:17 Immature Plt Fraction 16.1 % (1.1-6.1) H 09/01/16 04:55 Polychromasia 1+ (Not Present) A 09/02/16 05:45 Hypochromasia Present (Not Present) A 09/02/16 05:45 Poikilocytosis 2+ (Not Present) A 08/30/16 07:46 Anisocytosis 2+ (Not Present) A 09/02/16 05:45 Macrocytosis Present (Not Present) A 08/31/16 04:41 Target Cells 1+ (Not Present) A 08/30/16 15:25 Tear Drop Cells 1+ (Not Present) A 08/30/16 07:46 [place] Cells 2+ (Not Present) A 09/02/16 05:45 Rouleaux Present (Not Present) A 08/30/16 15:25 Schistocytes 1+ (Not Present) A 08/30/16 07:46 Sodium 128 mEq/L (136-145) L 08/30/16 20:01 Potassium 5.7 mEq/L (3.5-4.5) H 08/30/16 20:01 Chloride 95 mEq/L (98-109) L 08/30/16 20:01 Carbon Dioxide 17 mEq/L (19-29) L 08/30/16 20:01 BUN 37 mg/dL (8-26) H 08/30/16 20:01 Creatinine 0.53 mg/dL (0.72-1.25) L 08/30/16 20:01 BUN/Creatinine Ratio 70 (6-26) H 08/30/16 20:01 Glucose 47 mg/dL (70-99) L 08/30/16 20:01 Calculated Osmolality 272 (280-300) L 08/30/16 20:01 Iron 61 mcg/dL (65-175) L 08/31/16 12:52 % Saturation 56 % (20-55) H 08/31/16 12:52 Transferrin 78 mg/dL (174-364) L 08/31/16 12:52 Ferritin 69563 ng/ml (22-275) H 08/31/16 12:52 Lactate Dehydrogenase 2541 Units/L (159-327) H 08/31/16 12:52 Amylase 23 Units/L (25-125) L 08/29/16 20:17 Vitamin B12 > 2000 pg/mL (213-816) H 08/31/16 12:52 Folate 4.5 ng/mL (7.0-31.4) L 08/31/16 12:52 Thyroxine (T4) 2.10 mcg/dL (4.87-11.72) L 08/31/16 12:52 General appearance: Present: no acute distress - Head Head exam: Present: atraumatic, normal inspection - Eye Eye exam: Present: normal appearance - ENT ENT exam: Present: mucous membranes moist - Respiratory Respiratory exam: Present: decreased breath sounds - Cardiovascular Cardiovascular exam: Present: RRR, tachycardia - GI/Abdominal GI/Abdominal exam: Present: normal bowel sounds, soft. Absent: tenderness - Extremities Exam Extremities exam: Present: normal inspection. Absent: pedal edema, tenderness - Neurological Exam Neurological exam: Present: altered - Psychiatric Psychiatric exam: Absent: agitated, anxious - Skin Skin exam: Present: dry, warm Palliative Quality Palliative Quality: Screen for Code Status: Yes, Screen for Goals of Care: Yes, Screen for Pain: Yes, If Pain Regimen Started, Initiate Bowel Regimen: Yes ( Restart regimen today), Screen for Nausea/Vomitting: Yes (None reported) Code Status: 08/29/16 04:57 Resuscitation Status: Active [RES] Routine Comment: Resuscitation Status: Full Code Resuscitation Status: Active [RES] Routine Comment: Resuscitation Status: [id number] - Labs CBC & Chem 7: 09/02/16 05:45 08/30/16 20:01 Labs: Laboratory Results - last 24 hr 08/29/16 09/01/16 09/01/16 20:17 00:01 02:21 WBC RBC Hgb Hct MCV MCH MCHC RDW Plt Count MPV Immature Gran % Seg Neutrophils % Lymphocytes % Monocytes % Eosinophils % Basophils % Neutrophils # Lymphocytes # Monocytes # Eosinophils # Basophils # Nucleated RBCs/100 WBC Platelet Estimate Polychromasia Hypochromasia Anisocytosis [place] Cells POC Glucose 57 L 66 DONAVAN Screen NONE DETECTED 09/01/16 09/01/16 09/01/16 03:03 03:56 04:54 WBC RBC Hgb Hct MCV MCH MCHC RDW Plt Count MPV Immature Gran % Seg Neutrophils % Lymphocytes % Monocytes % Eosinophils % Basophils % Neutrophils # Lymphocytes # Monocytes # Eosinophils # Basophils # Nucleated RBCs/100 WBC Platelet Estimate Polychromasia Hypochromasia Anisocytosis [place] Cells POC Glucose 58 60 58 DONAVAN Screen 09/01/16 09/01/16 09/01/16 05:57 07:05 07:08 WBC RBC Hgb Hct MCV MCH MCHC RDW Plt Count MPV Immature Gran % Seg Neutrophils % Lymphocytes % Monocytes % Eosinophils % Basophils % Neutrophils # Lymphocytes # Monocytes # Eosinophils # Basophils # Nucleated RBCs/100 WBC Platelet Estimate Polychromasia Hypochromasia Anisocytosis [place] Cells POC Glucose 66 30 L* 35 L* DONAVAN Screen 09/01/16 09/01/16 09/01/16 07:32 08:29 09:17 WBC RBC Hgb Hct MCV MCH MCHC RDW Plt Count MPV Immature Gran % Seg Neutrophils % Lymphocytes % Monocytes % Eosinophils % Basophils % Neutrophils # Lymphocytes # Monocytes # Eosinophils # Basophils # Nucleated RBCs/100 WBC Platelet Estimate Polychromasia Hypochromasia Anisocytosis [place] Cells POC Glucose 102 H 63 80 DONAVAN Screen 09/01/16 09/01/16 09/01/16 10:28 10:30 10:56 WBC RBC Hgb Hct MCV MCH MCHC RDW Plt Count MPV Immature Gran % Seg Neutrophils % Lymphocytes % Monocytes % Eosinophils % Basophils % Neutrophils # Lymphocytes # Monocytes # Eosinophils # Basophils # Nucleated RBCs/100 WBC Platelet Estimate Polychromasia Hypochromasia Anisocytosis [place] Cells POC Glucose 42 L* 43 L* 112 H DONAVAN Screen 09/01/16 09/01/16 09/01/16 12:15 12:59 14:01 WBC RBC Hgb Hct MCV MCH MCHC RDW Plt Count MPV Immature Gran % Seg Neutrophils % Lymphocytes % Monocytes % Eosinophils % Basophils % Neutrophils # Lymphocytes # Monocytes # Eosinophils # Basophils # Nucleated RBCs/100 WBC Platelet Estimate Polychromasia Hypochromasia Anisocytosis [place] Cells POC Glucose 55 L 97 H 74 DONAVAN Screen 09/01/16 09/01/16 09/01/16 14:46 15:56 16:50 WBC RBC Hgb Hct MCV MCH MCHC RDW Plt Count MPV Immature Gran % Seg Neutrophils % Lymphocytes % Monocytes % Eosinophils % Basophils % Neutrophils # Lymphocytes # Monocytes # Eosinophils # Basophils # Nucleated RBCs/100 WBC Platelet Estimate Polychromasia Hypochromasia Anisocytosis [place] Cells POC Glucose 66 88 74 DON[place] Screen 09/01/16 09/01/16 09/01/16 17:30 17:58 18:59 WBC RBC Hgb Hct MCV MCH MCHC RDW Plt Count MPV Immature Gran % Seg Neutrophils % Lymphocytes % Monocytes % Eosinophils % Basophils % Neutrophils # Lymphocytes # Monocytes # Eosinophils # Basophils # Nucleated RBCs/100 WBC Platelet Estimate Polychromasia Hypochromasia Anisocytosis [place] Cells POC Glucose 69 134 H 82 DONAVAN Screen 09/01/16 09/01/16 09/01/16 20:08 20:35 20:59 WBC RBC Hgb Hct MCV MCH MCHC RDW Plt Count MPV Immature Gran % Seg Neutrophils % Lymphocytes % Monocytes % Eosinophils % Basophils % Neutrophils # Lymphocytes # Monocytes # Eosinophils # Basophils # Nucleated RBCs/100 WBC Platelet Estimate Polychromasia Hypochromasia Anisocytosis [place] Cells POC Glucose 73 65 132 H DONAVAN Screen 09/01/16 09/01/16 09/01/16 21:52 22:26 22:58 WBC RBC Hgb Hct MCV MCH MCHC RDW Plt Count MPV Immature Gran % Seg Neutrophils % Lymphocytes % Monocytes % Eosinophils % Basophils % Neutrophils # Lymphocytes # Monocytes # Eosinophils # Basophils # Nucleated RBCs/100 WBC Platelet Estimate Polychromasia Hypochromasia Anisocytosis [place] Cells POC Glucose 76 59 53 L DON[place] Screen 09/01/16 09/02/16 23:49 05:45 WBC 12.1 H RBC 3.48 L Hgb 8.0 L Hct 26.2 L MCV 75.3 L MCH 23.0 L MCHC 30.5 L RDW 22.0 H Plt Count 12 L* MPV TNP Immature Gran % 10.8 H Seg Neutrophils % 75.3 Lymphocytes % 10.9 Monocytes % 2.7 Eosinophils % 0.1 Basophils % 0.2 Neutrophils # 9.1 H Lymphocytes # 1.3 Monocytes # 0.3 Eosinophils # 0.0 Basophils # 0.0 Nucleated RBCs/100 WBC 2.4 H Platelet Estimate Marked Decrease L Polychromasia 1+ A Hypochromasia Present A Anisocytosis 2+ A [place] Cells 2+ A POC Glucose 72 DONAVAN Screen Consult Discharge Plan - Plan Referrals: NO,PCP [Primary Care Provider] -
--- NOTE | 2016-09-02 10:56 | Event Note ---
Date of Encounter: 09/02/16 Time of Encounter: 10:55 Hospice medical research tech certification of terminal illness: Hospice benefit. Start: Hospice benefit. In: +90 days Palliative performance scale: 20% History: He patient has metastatic melanoma, that is no longer treatable and as already noted is widely metastatic. The patient also has multiple endocrinopathies resulting in profound hypoglycemia. Patient and family wish to stop all further aggressive therapy therefore These findings support a life expectancy of 6 months or less. I attest that I have compose the above narrative based on my review of the patient's medical records, and or on my examination of the patient. Nhan Soliz M.D. Associate medical office scheduler. [facility]
--- NOTE | 2016-09-02 11:04 | Discharge Summary ---
Date of Encounter: 09/02/16 Time of Encounter: 10:57 - Discharge Diagnosis (1) Hypoglycemia Priority: Primary Status: Acute (2) Thrombocytopenia Priority: Primary Status: Chronic (3) Failure to thrive in adult Priority: Secondary Status: Acute (4) DVT prophylaxis Priority: Secondary Status: Acute (5) Hyponatremia Priority: Secondary Status: Chronic (6) Cancer associated pain Priority: Secondary Status: Acute (7) Metastatic melanoma Priority: Secondary Status: Chronic - Discharge Medications Home Medications: Dexamethasone [Decadron] 4 mg PO BID 08/29/16 [History] Furosemide [Lasix] 20 mg PO DAILY 08/29/16 [History] LevETIRAcetam [Roweepra] 500 mg PO BID 08/29/16 [History] Oxycodone HCl [Roxicodone 30 MG Immed Release] 30 mg PO Q6HR 08/29/16 [History] Bisacodyl [Dulcolax] 10 mg RC HS supp.rect 09/02/16 [Rx] Dexamethasone [Decadron] 4 mg IVP TID vial 09/02/16 [Rx] Dextrose 50 % in Water (Syg) [Dextrose 50% (Syg)] 50 ml IVP AD PRN #0 syringe [Rx] Glucagon, Human Recombinant [Glucagen] 1 mg IVP Q15MIN PRN #0 vial 09/02/16 [Rx] Levothyroxine [Synthroid] 25 mcg PO DAILY@0630 tablet 09/02/16 [Rx] Metoclopramide [Reglan] 5 mg IVP Q8HR vial 09/02/16 [Rx] Naloxone [Narcan] 0.4 mg IVP Q2MIN PRN #0 inj 09/02/16 [Rx] Ondansetron [Zofran] 4 mg IVP Q6HR PRN #0 vial 09/02/16 [Rx] Sennosides/Docusate Sodium [Senna Plus] 2 each PO BID tablet 09/02/16 [Rx] Allergies/Adverse Reactions: Allergies Penicillins Allergy (Verified 08/05/16 08:19) Difficulty Breathing Date of admission: 08/29/16 04:57 Primary care physician: PCP NO Consults: 08/29/16 04:56 Consult to Nutrition [CONS] Routine Comment: Consulting Provider: NUTRITION Reason for Dietary Consult: MST Score Consult to College Athletic Director [CONS] Routine Reason for SW Consult: patient lethargic no family present, diagnosed with stage 4 melanoma 08/29/16 05:14 Consult to Palliative Care [CONS] Routine Comment: Consulting Provider: Palliative Care Mary Reason for Consult: stage 4 melanoma with metastatic disease to the brain. need to establish goals of care and code status. Call Completed: No 08/29/16 12:35 Consult to Oncology Hematology [CONS] Routine Consulting Provider: Vlad Dietrich Reason for Consult: please evlauate this patient presenting with AMS and thrombocytopenia with h/o metastatic melanoma for any further management. thank you Call Completed: Yes 09/01/16 14:32 Consult to Occupational Therapy [CONS] Routine Comment: Evaluate, develop and implement POC Reason for Consult: EVAL FOR POSS ECF Consult to Physical Therapy [CONS] Routine Comment: Evaluate, develop and implement POC Reason for Consult: EVAL FOR POSS ECF Discharging clinician: Jeannette Manzo Anticipated date of discharge: 09/02/16 - Patient Status Disposition: Hospice - Medical Facility Condition: Serious Functional capacity at discharge: bed bound Overall status at discharge: patient is not back to baseline - Discharge Instructions Follow Up With: NO,PCP [Primary Care Provider] - - Diet and Activity Activity: as per physical therapy Diet: advance to your usual diet Hospital course: Mr. Reddy Sandoval is a 41-year-old male admitted for hypoglycemia. He has underlying metastatic malignant melanoma which has already spread to his brain lungs bones and abdominal organs. He underwent [facility] treatment in [place] for One of his brain lesion. By appearance patient is cachectic and has very poor oral intake and seems quite depressed and lethargic. He is on immunotherapy which apparently he did not tolerate very well. He has pancytopenia especially thrombocytopenia with platelet count currently continuously falling and not 12,000 only though he is not bleeding. WBC count and RBC count had stabilized around 12,008 respectively. Oncology and palliative care were consulted. Metabolic workup for anemia including iron studies B12 folic acid and TSH are within normal range. His LDH is elevated but this is perhaps related to his malignant melanoma. Adrenal insufficiency suspected however random cortisol level is in the range of 22. He is on Decadron and am not sure if this random cortisol level was drawn after starting the decadron. His hypoglycemia is is still not controlled and he has been receiving multiple doses of D50 but today it is much better.. Patient has refused NG tube. In his family members one of his sister is really close to him and plays a role of primary caregiver. He has one child he could not tell me if the child stays with him how old is her. We tried to discuss the discharge plan with patient however he insists to go home and does not accept any alternate plans. Apparently he has a stage IV malignant melanoma and he did not tolerate immunotherapy well causing severe hyperglycemia and pancytopenia. Oncology discussed the case and presented option to patient family and caregivers and they have chose hospice care. Palliative care was consulted and has accepted the patient and at this point patient will be transferred to hospice inpatient. It is noted from oncology the patient has a very poor prognosis at this point. Family and caregivers and patient have been made aware that questions were answered and they had the opportunity to discuss the case with all consultants. - Time Spent with Patient Total time spent providing and/or coordinating discharge services: Greater than 30 minutes - Constitutional Vitals: Temp Pulse Resp BP Pulse Ox 97.8 F 127 24 111/84 94 09/02/16 06:00 09/02/16 06:00 09/02/16 06:00 09/02/16 06:00 09/02/16 06:00 General appearance: Present: cachectic, A&O X 0, A&O X 1, no acute distress, loss of weight. Absent: answers questions appropriately - Head Head exam: Present: atraumatic, normocephalic - Eye Eye exam: Present: PERRL, conjuntiva pink, sclera anicteric Pupils: Present: PERRL - Neck Neck exam general surgery: Present: supple, trachea midline. Absent: lymphadenopathy - Respiratory Respiratory exam: Present: CTAB. Absent: accessory muscle use, rales, rhonchi, wheezes - Cardiovascular Cardiovascular exam: Present: RRR, +S1, +S2. Absent: diastolic murmur, gallop, rubs, systolic murmur - GI/Abdominal GI/Abdominal exam: Present: normal bowel sounds, soft, no peritoneal signs. Absent: distended, tenderness - Extremities Exam Extremities exam: Present: warm, radial pulses palpable and symetrical. Absent : calf tenderness, cyanotic, pedal edema - Neurological Exam Neurological exam: Present: CN II-XII intact, oriented X3, no focal deficits. Absent: pronater drift, facial droop, speech deficit Additional comments: Lethargic but awake able to understand and answer questions well nonfocal exam - Skin Skin exam: Present: dry, intact - VTE Documentation of Mechanical Device: Graduated compression elastic hosiery
[2016-09-03 13:49] LABS: MMA (VIT B12 STATUS) 0.32 umol/L (0.00-0.40)
== END 2016-09-02 13:39 | disposition other institution (70) | DRG 951 ==
LOC: 2NNU
PROVIDERS: ADMIT Internal Medicine; ATTEND Internal Medicine Endocrinology, Diabetes & Metabolism

== ENCOUNTER 2016-09-02 10:42 | Inpatient (IN) ==
[2016-09-02] MEDS ORDERED: *HR* LORazepam Oral Conc 2 MG/ML PO PRN (10:58)
[2016-09-02] MEDS ORDERED: Atropine Sulfate 1% 40 DROP/2 ML BOTTLE SL PRN (10:58)
[2016-09-02] MEDS ORDERED: Haloperidol Oral Conc 10 MG/5 ML UDC PO PRN (10:58)
[2016-09-02] MEDS ORDERED: *HR* Morphine 2 MG/ML SYRINGE IVP PRN ×2 (10:58→14:32)
[2016-09-02] MEDS ORDERED: Morphine Oral CONC 5 MG/0.25 ML ORAL.SYG PO PRN (10:58)
[2016-09-02] MEDS ORDERED: Ondansetron 4 MG/2 ML VIAL IVP PRN (10:58)
--- NOTE | 2016-09-02 11:19 | Pallative History & Physical ---
Date of Encounter: 09/02/16 Time of Encounter: 11:15 Assessment and Plan (1) Cancer associated pain Status: Acute Aggressive pain management will be undertaken with her feet available by mouth sublingually, and IV morphine available every hour. Will adjust as needed. (2) Goals of care, counseling/discussion Status: Acute She is now DO NOT RESUSCITATE Comfort Care only, has requested hospice services and the patient will be admitted to inpatient hospice for symptom control as he is transitioned off his glycemia regimen. It is not expected the patient will live very long unless his current system is able to write itself. The patient does make it over the course of the weekend, we will transition to home or seeing home hospice care. Patient is not able to tolerate any further immune therapy or therapies in general for his cancer. (3) Hypoglycemia Status: Acute At this point I expect his blood sugars to remain low therefore we will stop all blood sugar measurements. Stop his D10, I will not give anymore D50. Status at length with his family and they are in agreement. (4) Hyponatremia Status: Chronic The patient has been persistently hyponatremic for week now probably much longer than that where to stop all blood draws. (5) Metastatic melanoma Status: Chronic (6) Thrombocytopenia Status: Chronic The patient will get no further transfusions of platelets, and we will not check any further labs on this. Internal Medicine - H&P: HPI Admitted From: Intrahospital Transfer Plans for Post Hospital Care: Hospice - Home History of present illness: Mr. 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 Over the course of the last several days patient has not been able to take in any stable amount of by mouth nourishment. He has pulled out his feeding tube 7 times. During this time he has been maintained on a D10 drip, doses of D50. As of yesterday the D10 drip was going all day he got 7 doses of D50 and the highest his blood sugar was was 167. Oncology has seen him and deemed him to be old to take any further immune therapy. Given that his immune therapy is not available to him any longer, and he is not taking in any meaningful nutrition the family has opted for hospice care. As the patient has an active metabolic encephalopathy secondary to hypoglycemia have elected to make him general inpatient hospice for the purposes of transitioning him him off all of the medications designed to keep his blood sugar up. He will be allowed to eat, if he is able to do so. As the hypoglycemia is part of the active disease process. We will stop Artificially raising his blood sugar. We will plan on him being in the hospital over the weekend and then transition to home or group home if he is able. Past Med Surg Social Fam HX - Past Medical History Medical history: other - Past Surgical History Surgical History: non-contributory - Social History Smoking Status: Current every day smoker Smokeless Tobacco Status: No Alcohol use: unknown Drug use: marijuana Internal Medicine - H&P: Meds Dexamethasone [Decadron] 4 mg PO BID 08/29/16 [History] Furosemide [Lasix] 20 mg PO DAILY 08/29/16 [History] LevETIRAcetam [Roweepra] 500 mg PO BID 08/29/16 [History] Oxycodone HCl [Roxicodone 30 MG Immed Release] 30 mg PO Q6HR 08/29/16 [History] Allergies Penicillins Allergy (Verified 08/05/16 08:19) Difficulty Breathing ROS unobtainable: due to mental status Palliative Care-Exam - Constitutional General appearance: Present: no acute distress, thin - Head Head Exam: Present: atraumatic, normal inspection, normocephalic - Eye Eye exam: Present: normal appearance - ENT ENT exam: Present: mucous membranes moist - Neck Neck exam: Present: normal inspection - Respiratory Respiratory exam: Present: decreased breath sounds - Cardiovascular Cardiovascular exam: Present: RRR, tachycardia - GI/Abdominal Exam GI/Abdominal exam: Present: normal bowel sounds, soft. Absent: tenderness - Catheter Type: Urethral (Harris) - Neurological Exam Neurological exam: Present: altered - Psychiatric Psychiatric exam: Absent: agitated, anxious - Skin Skin exam: Present: dry, warm Palliative Quality Palliative Quality: Screen for Code Status: Yes, Screen for Goals of Care: Yes, Screen for Pain: Yes, If Pain Regimen Started, Initiate Bowel Regimen: Yes, Screen for Nausea/Vomitting: Yes Code Status: 09/02/16 10:58 Resuscitation Status: Active [RES] Stat Resuscitation Status: DNR-Comfort Care Comment:
[2016-09-02] MEDS: *HR* LORazepam 2 MG/ML VIAL IVP PRN ×3 (14:24→17:08)
[2016-09-02] MEDS ORDERED: *HR* Morphine 2 MG/ML SYRINGE IVP ONE (14:31)
[2016-09-02] MEDS: Nystatin SUSP 5 ML UD.LIQ PO SCH ×2 (14:37→17:04)
[2016-09-02] MEDS ORDERED: Dexamethasone 4 MG/ML VIAL IVP SCH (15:00)
[2016-09-02 15:40] VITALS: BP 81/56
[2016-09-02] MEDS ORDERED: Sennosides/Docusate Sodium TABLET PO SCH (21:00)
[2016-09-02] MEDS ORDERED: Bisacodyl 10 MG RECTAL SUPPOSITORY RC SCH (21:00)
--- NOTE | 2016-09-04 07:11 | Death Note ---
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 Family had opted for hospice care. Patient quietly and comfortably with family at bedside. Agent had only been in hospice for Ovral hours. The patient may have been a smoker unknown for sure. There were no comorbidities - Additional Data Confirmation of as documented by pronouncing clinician: no pulse, no respirations, no heart sounds Family: at bedside Attending/PCP notified?: Yes Attending physician: Nhan Soliz MD Was code activated?: No Autopsy requested?: No roll examiner notified?: No Organ bank notified?: Yes Advance directives: No Hospice patient?: Yes Discharge Sum: Diag - PCOD Probable Cause of : Respiratory arrest Discharge Sum: Prov - Provider Primary care physician: PCP NO Consults: 09/02/16 10:58 Consult to Palliative Care [CONS] Routine Comment: Consulting Provider: Palliative Care Mary Reason for Consult: GIP coverage Call Completed: Yes
== END 2016-09-02 20:25 | disposition expired | DRG 643 ==
LOC: 2ANU 14:16
PROVIDERS: ADMIT Family Medicine Hospice and Palliative Medicine; ATTEND Family Medicine Hospice and Palliative Medicine